=== PATIENT | male | born 1955 | race Two or more races ===

== ENCOUNTER 2017-09-17 11:04 | Inpatient (IN) | payer OTHER ==
[2017-09-17 12:09] VITALS: BMI 24.2
--- NOTE | 2017-09-17 14:31 | HP ---
CIWA Score - CIWA Score Nausea/Vomitin-No Nausea/No Vomiting Muscle Tremors: 4-Moderate,w/Arms Extend Anxiety: 4-Mod. Anxious/Guarded Agitation: 4-Moderately Restless Paroxysmal Sweats: 3 Orientation: 0-Oriented Tacttile Disturbances: 0-None Auditory Disturbances: 0-None Visual Disturbances: 0-None Headache: 1-Very Mild CIWA-Ar Total Score: 16 Admission ROS BHS - HPI Chief Complaint: I am here for detox for my drinking. Allergies/Adverse Reactions: Allergies Allergy/AdvReac Type Severity Reaction Status Date / Time No Known Allergies Allergy Verified 09/17/17 13:44 History of Present Illness: pt is a 62yr old male with a history of alcohol dependence seeking detox for treatment. Exam Limitations: No Limitations, Language Barrier - Ebola screening Have you traveled outside of the country in the last 21 days: No Have you had contact with anyone from an Ebola affected area: No Have you been sick,other than usual withdrawal symptoms: No Do you have a fever: No - Review of Systems Constitutional: Chills, Loss of Appetite, Changes in sleep, Unintentional Wgt. Loss EENT: reports: No Symptoms Reported Respiratory: reports: No Symptoms reported Cardiac: reports: No Symptoms Reported, Syncope GI: reports: Poor Appetite, Poor Fluid Intake, Vomiting : reports: No Symptoms Reported Musculoskeletal: reports: No Symptoms Reported Integumentary: reports: Flushing, Sweating Neuro: reports: Headache, Tingling, Tremors Endocrine: reports: Flushing, Intolerance to Cold, Intolerance to Heat Hematology: reports: No Symptoms Reported Psychiatric: reports: Judgement Intact, Mood/Affect Appropiate, Orientated x3, Agitated, Anxious Other Systems: Reviewed and Negative Patient History - Patient Medical History Hx Anemia: No Hx Asthma: Yes Hx Chronic Obstructive Pulmonary Disease (COPD): No Hx Cancer: No Hx Cardiac Disorders: No Hx Congestive Heart Failure: No Hx Hypertension: No Hx Hypercholesterolemia: No Hx Pacemaker: No HX Cerebrovascular Accident: No Hx Seizures: No Hx Dementia: No Hx Diabetes: No Hx Gastrointestinal Disorders: No Hx Liver Disease: No Hx Genitourinary Disorders: No Hx Sexually Transmitted Disorders: No Hx Renal Disease (ESRD): No Hx Thyroid Disease: No Hx Human Immunodeficiency Virus (HIV): No Hx Hepatitis C: No Hx Depression: Yes Hx Suicide Attempt: No Hx Bipolar Disorder: No Hx Schizophrenia: No - Patient Surgical History Past Surgical History: Yes Hx Neurologic Surgery: No Hx Cataract Extraction: No Hx Cardiac Surgery: No Hx Lung Surgery: No Hx Breast Surgery: No Hx Breast Biopsy: No Hx Abdominal Surgery: Yes (right inguinal hernia repair 20 years ago) Hx Appendectomy: Yes Hx Cholecystectomy: No Hx Genitourinary Surgery: No Hx Section: No Hx Orthopedic Surgery: No Other Surgical History: right inguinal hernia repair Anesthesia Reaction: No - PPD History Previous Implant?: Yes Documented Results: Positive w/o proof Date: 10/04/13 PPD to be Administered?: Yes - Reproductive History Patient is a Female of Child Bearing Age (11 -55 yrs old): No Patient : No - Smoking Cessation Smoking history: Current every day smoker Have you smoked in the past 12 months: Yes Aproximately how many cigarettes per day: 12 Cigars Per Day: 0 Hx Chewing Tobacco Use: No Initiated information on smoking cessation: Yes 'Breaking Loose' booklet given: 09/17/17 - Substance & Tx. History Hx Alcohol Use: Yes Hx Substance Use: No Substance Use Type: Alcohol Hx Substance Use [facility]: [facility] - Substances Abused Alcohol/ Vodka/Beer Route: Oral Frequency: Daily Amount used: 4/5 pints Age of first use: 16 Date of Last Use: 09/16/17 Family Disease History - Family Disease History Family Disease History: Heart Disease: Mother (HTN), Other: Father (alzheimers) Admission Physical Exam BHS - Vital Signs Vital Signs: Vital Signs - 24 hr 09/17/17 12:05 Temperature 96.8 F L Pulse Rate 81 Respiratory 17 Rate Blood Pressure 123/75 - Physical General Appearance: Yes: Appropriately Dressed, Tremorous, Irritable, Sweating, Anxious HEENTM: Yes: Normal Voice, Nasal Congestion, Rhinorrhea Respiratory: Yes: Lungs Clear, Normal Breath Sounds, No Respiratory Distress Neck: Yes: No masses,lesions,Nodules Breast: Yes: Within Normal Limits Cardiology: Yes: Regular Rhythm, Regular Rate, S1, S2 Abdominal: Yes: Normal Bowel Sounds, Non Tender, Soft Genitourinary: Yes: Within Normal Limits Back: Yes: Normal Inspection Musculoskeletal: Yes: full range of Motion, Back pain Extremities: Yes: Normal Capillary Refill, Normal Inspection, Non-Tender, Tremors Neurological: Yes: Fully Oriented, Alert, Normal Response Integumentary: Yes: Normal Color, Diaphoresis Lymphatic: Yes: Within Normal Limits - Diagnostic (1) Alcohol dependence with uncomplicated withdrawal Current Visit: Yes Status: Chronic (2) Asthma Current Visit: Yes Status: Chronic (3) Nicotine dependence Current Visit: Yes Status: Chronic Qualifiers: Nicotine product type: cigarettes Substance use status: uncomplicated Qualified Code(s): F17.210 - Nicotine dependence, cigarettes, uncomplicated Cleared for Admission [facility] - Detox or Rehab [facility] Level of Care: Medically Managed Detox Regimen/Protocol: Librium [facility] Breath Alcohol Content Breath Alcohol Content: 0.029 Urine Drug Screen - Results Drug Screen Negative: No Urine Drug Screen Results: BZO-Benzodiazepines
[2017-09-17] MEDS ORDERED: MAGNESIUM CITRATE 300 ML BOTTLE PO PRN (14:37)
[2017-09-17] MEDS ORDERED: guaiFENesin/D-METHORPHAN HB 10 ML UNIT-DOSE CUPS PO PRN (14:37)
[2017-09-17] MEDS ORDERED: P-EPHED 60MG/TRIPROLIDI 2.5MG TABLET PO PRN (14:37)
[2017-09-17] MEDS ORDERED: LOPERAMIDE HCL 2 MG CAPSULE PO PRN (14:37)
[2017-09-17] MEDS ORDERED: NICOTINE POLACRILEX 4 MG GUM BUC PRN (14:37)
[2017-09-17] MEDS ORDERED: chlordiazePOXIDE HCL 25 MG CAPSULE PO PRN (14:37)
[2017-09-17] MEDS ORDERED: MENTHOL/PHENOL 1 EACH UD MM PRN (14:37)
[2017-09-17] MEDS ORDERED: ACETAMINOPHEN 325 MG TABLET (FP) PO PRN (14:37)
[2017-09-17] MEDS ORDERED: MAG HYDROX/AL HYDROX/SIMETH 30 ML UNIT-DOSE CUP PO PRN (14:37)
[2017-09-17] MEDS ORDERED: MAGNESIUM HYDROX 2400MG/30ML ORAL SUSPENSION 30 ML CUP PO PRN (14:37)
[2017-09-17] MEDS ORDERED: ALBUTEROL SO4 18 GM HFA INHALER IH PRN (14:39)
[2017-09-17] MEDS ORDERED: chlordiazePOXIDE HCL 25 MG CAPSULE PO ONE (15:21)
[2017-09-17 17:12] LABS: URINE APPEARANCE CLEAR; URINE BILIRUBIN NEGATIVE (NEGATIVE); URINE BLOOD NEGATIVE (NEGATIVE); URINE COLOR YELLOW; URINE GLUCOSE (UA) 1+ (NEGATIVE); URINE KETONE NEGATIVE (NEGATIVE); URINE LEUK ESTERASE NEGATIVE (NEGATIVE); URINE NITRITE NEGATIVE (NEGATIVE); URINE PROTEIN NEGATIVE (NEGATIVE); URINE UROBILINOGEN NEGATIVE mg/dL (0.2-1.0)
[2017-09-17] MEDS: chlordiazePOXIDE HCL 25 MG CAPSULE PO SCH ×2 (17:42→22:23)
[2017-09-17] MEDS: IBUPROFEN 400 MG TABLET (FP) PO PRN (19:48)
[2017-09-17 20:41] LABS: URINE LEUK ESTERASE NEGATIVE (NEGATIVE)
[2017-09-17] MEDS: THIAMINE HCL 100 MG TABLET (FP) PO SCH (22:22)
[2017-09-17] MEDS: hydrOXYzine PAMOATE 50 MG CAPSULE (FP) PO PRN (22:24)
[2017-09-18] MEDS: chlordiazePOXIDE HCL 25 MG CAPSULE PO SCH ×4 (06:00→22:21)
[2017-09-18 10:02] LABS: MCH 27.4 pg (25.7-33.7); MCHC 32.4 g/dl (32.0-35.9); MEAN CELL VOLUME 84.5 fl (80-96); PLATELET COUNT 258 K/MM3 (134-434); RDW 16.5 % (11.9-15.9); WHITE BLOOD COUNT 5.9 K/mm3 (4.0-10.0)
[2017-09-18 10:16] LABS: ALBUMIN 3.7 g/dl (3.4-5.0); ANION GAP 5 (8-16); CALCIUM 8.9 mg/dL (8.5-10.1); CO2 30 mmol/L (21-32); CREATININE 1.4 mg/dL (0.7-1.3); GLUCOSE,RANDOM 79 mg/dL (74-106); SGOT/AST 37 U/L (15-37); SGPT/ALT 35 U/L (12-78)
[2017-09-18] MEDS: NICOTINE 21 MG/24 HOURS TOPICAL PATCH TD SCH (10:17)
[2017-09-18] MEDS: PRENATAL VITAMINS W/ FOLIC ACID TABLET (FP) PO SCH (10:17)
[2017-09-18 10:18] LABS: ALK PHOS 49 U/L (45-117); BILIRUBIN,TOTAL 0.8 mg/dL (0.2-1.0)
--- NOTE | 2017-09-18 10:43 | EKG ---
Test Reason : Blood Pressure : / mmHG Vent. Rate : 065 BPM Atrial Rate : 065 BPM P-R Int : 114 ms QRS Dur : 092 ms QT Int : 382 ms P-R-T Axes : 051 021 039 degrees QTc Int : 397 ms NORMAL SINUS RHYTHM NORMAL ECG NO PREVIOUS ECGS AVAILABLE Confirmed by HUANG JACKSON, YARI ([id number]) on 09/18/2017 10:42:58 AM Referred By: Confirmed By:YARI ENCINAS MD
--- NOTE | 2017-09-18 11:31 | CONSULT ---
[facility] Psychiatric Consult - Data Date of interview: 09/18/17 Admission source: [facility] Identifying data: Readmission to [facility] for this 62 y/o male seeking detox treatment on for alcohol dependence.Patient is , a father of two,domiciled and employed as a snaker tractor driver (delivery). Substance Abuse History: Discussed in this session.Confirmed by patient.See details in current [facility] report : Smoking history: Current every day smoker. Have you smoked in the past 12 months: Yes. Aproximately how many cigarettes per day: 12. Cigars Per Day: 0. Hx Chewing Tobacco Use: No. Initiated information on smoking cessation: Yes. 'Breaking Loose' booklet given: . - Substance & Tx. History. Hx Alcohol Use: Yes. Hx Substance Use: No. Substance Use Type: Alcohol. Hx Substance Use Treatment: Yes (last detox [facility] detox 5 months ago). - Substances Abused. Alcohol/ Vodka/Beer. Route: Oral. Frequency: Daily. Amount used: 4/5 pints. Age of first use: 16. Date of Last Use: 09/16/17 Medical History: Bronchial asthma and a history of right inguinal herniorraphy + appendectomy. Psychiatric History: Diagnosed with MDD and prescribed lexapro 10 mg/ day.Patient admits to a history of 4-5 psychiatric hospitalizations ([facility]).No current connection with psychiatric OPD care.Mr Park reports one suicide attempt, three years ago,via deliberately jumping into traffic. Physical/Sexual Abuse/Trauma History: No reported history of abuse. Additional Comment: Urine Drug Screen Results: BZO-Benzodiazepines.Noted. Mental Status Exam - Mental Status Exam Alert and Oriented to: Time, Place, Person Cognitive Function: Good Patient Appearance: Well Groomed Mood: Hopeful, Euthymic Affect: Appropriate, Normal Range Patient Behavior: Appropriate, Cooperative Speech Pattern: Clear Voice Loudness: Normal Thought Process: Intact, Goal Oriented Thought Disorder: Not Present Hallucinations: Denies Suicidal Ideation: Denies Homicidal Ideation: Denies Insight/Judgement: Fair Sleep: Well Appetite: Good Muscle strength/Tone: Normal Gait/Station: Normal Psychiatric Findings - Problem List (Fay 1, 2,3) (1) Alcohol dependence with uncomplicated withdrawal Current Visit: Yes Status: Acute (2) Nicotine dependence Current Visit: Yes Status: Acute Qualifiers: Nicotine product type: cigarettes Substance use status: in withdrawal Qualified Code(s): F17.213 - Nicotine dependence, cigarettes, with withdrawal (3) Substance induced mood disorder Current Visit: Yes Status: Acute (4) Depressive disorder Current Visit: Yes Status: Chronic Comment: As per self-report.On antidepressant medication. - Initial Treatment Plan Initial Treatment Plan: Psychoeducation.Detoxification.Medication : lexapro 10 mg po daily.Side effects/benefits are discussed with the patient.He agrees to this careplan.Observation.
--- NOTE | 2017-09-18 11:33 | PN ---
[facility] CIWA - CIWA Score Nausea/Vomitin-No Nausea/No Vomiting Muscle Tremors: 4-Moderate,w/Arms Extend Anxiety: 4-Mod. Anxious/Guarded Agitation: 3 Paroxysmal Sweats: No Perspiration Orientation: 0-Oriented Tacttile Disturbances: 3-Moderate Itch/Numb/Burn Auditory Disturbances: 0-None Visual Disturbances: 0-None Headache: 0-None Present CIWA-Ar Total Score: 14 S Progress Note (SOAP) Subjective: SLIGHT ANXIETY,TREMORS,FATIGUE. Objective: 09/18/17 11:32 Vital Signs Temperature 96.5 F L 09/18/17 09:52 Pulse Rate 75 09/18/17 09:52 Respiratory Rate 18 09/18/17 09:52 Blood Pressure 105/74 09/18/17 09:52 O2 Sat by Pulse Oximetry (%) Laboratory Last Values WBC 5.9 K/mm3 (4.0-10.0) 09/18/17 05:45 RBC 5.27 M/mm3 (4.00-5.60) 09/18/17 05:45 Hgb 14.4 GM/dL (11.7-16.9) 09/18/17 05:45 Hct 44.6 % (35.4-49) 09/18/17 05:45 MCV 84.5 fl (80-96) 09/18/17 05:45 MCH 27.4 pg (25.7-33.7) 09/18/17 05:45 MCHC 32.4 g/dl (32.0-35.9) 09/18/17 05:45 RDW 16.5 % (11.9-15.9) H 09/18/17 05:45 Plt Count 258 K/MM3 (134-434) 09/18/17 05:45 MPV 8.0 fl (7.5-11.1) 09/18/17 05:45 Sodium 137 mmol/L (136-145) 09/18/17 05:45 Potassium 4.7 mmol/L (3.5-5.1) 09/18/17 05:45 Chloride 102 mmol/L (98-107) 09/18/17 05:45 Carbon Dioxide 30 mmol/L (21-32) 09/18/17 05:45 Anion Gap 5 (8-16) L 09/18/17 05:45 BUN 14 mg/dL (7-18) 09/18/17 05:45 Creatinine 1.4 mg/dL (0.7-1.3) H D 09/18/17 05:45 Creat Clearance w eGFR 51.69 (>60) 09/18/17 05:45 Random Glucose 79 mg/dL (74-106) 09/18/17 05:45 Calcium 8.9 mg/dL (8.5-10.1) 09/18/17 05:45 Total Bilirubin 0.8 mg/dL (0.2-1.0) D 09/18/17 05:45 AST 37 U/L (15-37) 09/18/17 05:45 ALT 35 U/L (12-78) D 09/18/17 05:45 Alkaline Phosphatase 49 U/L (45-117) 09/18/17 05:45 Total Protein 7.0 g/dl (6.4-8.2) 09/18/17 05:45 Albumin 3.7 g/dl (3.4-5.0) 09/18/17 05:45 Urine Color Yellow 09/17/17 15:40 Urine Appearance Clear 09/17/17 15:40 Urine pH 7.0 (5.0-8.0) 09/17/17 15:40 Ur Specific [place] 1.018 (1.001-1.035) 09/17/17 15:40 Urine Protein Negative (NEGATIVE) 09/17/17 15:40 Urine Glucose (UA) 1+ (NEGATIVE) H 09/17/17 15:40 Urine Ketones Negative (NEGATIVE) 09/17/17 15:40 Urine Blood Negative (NEGATIVE) 09/17/17 15:40 Urine Nitrite Negative (NEGATIVE) 09/17/17 15:40 Urine Bilirubin Negative (NEGATIVE) 09/17/17 15:40 Urine Urobilinogen Negative mg/dL (0.2-1.0) 09/17/17 15:40 Ur Leukocyte Esterase Negative (NEGATIVE) 09/17/17 15:40 Assessment: 09/18/17 11:32 WITHDRAWAL SX Plan: CONTINUE DETOX INCREASE PO FLUIDS.
[2017-09-18] MEDS ORDERED: FLU VACCINE QUAD 60 MCG/0.5 ML (MDV 17-18) IM ONE (12:00)
[2017-09-18 15:10] LABS: HIV 1 & 2 AB NEGATIVE; HIV 1 AGp24 NEGATIVE
[2017-09-18] MEDS: IBUPROFEN 400 MG TABLET (FP) PO PRN (16:56)
[2017-09-18] MEDS: THIAMINE HCL 100 MG TABLET (FP) PO SCH (22:21)
[2017-09-18] MEDS: hydrOXYzine PAMOATE 50 MG CAPSULE (FP) PO PRN (22:23)
[2017-09-19] MEDS: chlordiazePOXIDE HCL 25 MG CAPSULE PO SCH (05:22)
[2017-09-19] MEDS: PRENATAL VITAMINS W/ FOLIC ACID TABLET (FP) PO SCH (09:17)
[2017-09-19] MEDS: NICOTINE 21 MG/24 HOURS TOPICAL PATCH TD SCH (09:17)
[2017-09-19 09:36] VITALS: BP 95/67; PULSE 81; TEMP 97.9
[2017-09-19] MEDS ORDERED: ESCITALOPRAM OXALATE 10 MG TABLET (FP) PO SCH (10:00)
--- NOTE | 2017-09-19 10:37 | DS ---
[facility] Detox Discharge Summary Admission Date: 09/17/17 Discharge Date: 09/19/17 - History Present History: Alcohol Dependence Additional Comments: PT DECLINED TO CONTINUE WITH DETOX FOR PERSONAL REASON OF "GOING BACK TO WORK IMMEDIATELY". ALERT O X 3. EXPLAINED TO PT THE NEED FOR TREATMENT ADHERENCE. PT STATES WILL FOLLOW UP WITH [facility] AT [facility] FOR MEDICAL MANAGEMENT NEEDED. Pertinent Past History: ASTHMA - Physical Exam Results Vital Signs: Vital Signs Temperature 97.9 F 09/19/17 09:35 Pulse Rate 81 09/19/17 09:35 Respiratory Rate 20 09/19/17 09:35 Blood Pressure 95/67 09/19/17 09:35 O2 Sat by Pulse Oximetry (%) Pertinent Admission Physical Exam Findings: WITHDAKarlosWAL SX Laboratory Last Values WBC 5.9 K/mm3 (4.0-10.0) 09/18/17 05:45 RBC 5.27 M/mm3 (4.00-5.60) 09/18/17 05:45 Hgb 14.4 GM/dL (11.7-16.9) 09/18/17 05:45 Hct 44.6 % (35.4-49) 09/18/17 05:45 MCV 84.5 fl (80-96) 09/18/17 05:45 MCH 27.4 pg (25.7-33.7) 09/18/17 05:45 MCHC 32.4 g/dl (32.0-35.9) 09/18/17 05:45 RDW 16.5 % (11.9-15.9) H 09/18/17 05:45 Plt Count 258 K/MM3 (134-434) 09/18/17 05:45 MPV 8.0 fl (7.5-11.1) 09/18/17 05:45 Sodium 137 mmol/L (136-145) 09/18/17 05:45 Potassium 4.7 mmol/L (3.5-5.1) 09/18/17 05:45 Chloride 102 mmol/L (98-107) 09/18/17 05:45 Carbon Dioxide 30 mmol/L (21-32) 09/18/17 05:45 Anion Gap 5 (8-16) L 09/18/17 05:45 BUN 14 mg/dL (7-18) 09/18/17 05:45 Creatinine 1.4 mg/dL (0.7-1.3) H D 09/18/17 05:45 Creat Clearance w eGFR 51.69 (>60) 09/18/17 05:45 Random Glucose 79 mg/dL (74-106) 09/18/17 05:45 Calcium 8.9 mg/dL (8.5-10.1) 09/18/17 05:45 Total Bilirubin 0.8 mg/dL (0.2-1.0) D 09/18/17 05:45 AST 37 U/L (15-37) 09/18/17 05:45 ALT 35 U/L (12-78) D 09/18/17 05:45 Alkaline Phosphatase 49 U/L (45-117) 09/18/17 05:45 Total Protein 7.0 g/dl (6.4-8.2) 09/18/17 05:45 Albumin 3.7 g/dl (3.4-5.0) 09/18/17 05:45 Urine Color Yellow 09/17/17 15:40 Urine Appearance Clear 09/17/17 15:40 Urine pH 7.0 (5.0-8.0) 09/17/17 15:40 Ur Specific [place] 1.018 (1.001-1.035) 09/17/17 15:40 Urine Protein Negative (NEGATIVE) 09/17/17 15:40 Urine Glucose (UA) 1+ (NEGATIVE) H 09/17/17 15:40 Urine Ketones Negative (NEGATIVE) 09/17/17 15:40 Urine Blood Negative (NEGATIVE) 09/17/17 15:40 Urine Nitrite Negative (NEGATIVE) 09/17/17 15:40 Urine Bilirubin Negative (NEGATIVE) 09/17/17 15:40 Urine Urobilinogen Negative mg/dL (0.2-1.0) 09/17/17 15:40 Ur Leukocyte Esterase Negative (NEGATIVE) 09/17/17 15:40 RPR Titer Nonreactive (NONREACTIVE) 09/18/17 05:45 HIV 1&2 Antibody Screen Negative 09/17/17 06:00 HIV P24 Antigen Negative 09/17/17 06:00 - Treatment Hospital Course: Discharged Condition Good - Medication Discharge Medications: Ambulatory Orders Albuterol Sulfate Inhaler - [Ventolin HFA Inhaler -] 2 inh PO Q4H PRN #0 inh Albuterol Sulfate Inhaler - [Ventolin Hfa Inhaler -] 2 inh PO Q4H PRN 08/27/17 Escitalopram Oxalate [Lexapro -] 10 mg PO DAILY 08/27/17 Escitalopram Oxalate [Lexapro -] 10 mg PO DAILY #30 tablet 08/28/17 Escitalopram Oxalate [Lexapro -] 10 mg PO DAILY 09/17/17 Escitalopram Oxalate [Lexapro -] 10 mg PO DAILY #30 tablet 09/18/17 - Diagnosis (1) Alcohol dependence with uncomplicated withdrawal Status: Acute (2) Asthma Status: Chronic (3) Nicotine dependence Status: Acute Qualifiers: Nicotine product type: cigarettes Substance use status: in withdrawal Qualified Code(s): F17.213 - Nicotine dependence, cigarettes, with withdrawal - AMA Did Patient Leave Against Medical Advice: Yes
[2017-09-19] MEDS ORDERED: chlordiazePOXIDE 5 MG CAPSULE PO SCH (17:00)
[2017-09-20] MEDS ORDERED: chlordiazePOXIDE HCL 10 MG CAPSULE PO SCH (17:00)
== END 2017-09-19 10:18 | disposition left against medical advice (07) | DRG 770 ==
LOC: YASAS 11:04 → Y3N 14:42
PROVIDERS: ADMIT Internal Medicine; ATTEND Internal Medicine
PROC: HZ2ZZZZ Detoxification Services for Substance Abuse Treatment (ICD-10-PCS; principal; 2017-09-17)
DX: F10.230 Alcohol dependence with withdrawal, uncomplicated (principal); F17.213 Nicotine dependence, cigarettes, with withdrawal; F19.24 Other psychoactive substance dependence with psychoactive substance-induced mood disorder; F39 Unspecified mood [affective] disorder; J45.909 Unspecified asthma, uncomplicated
CPT/HCPCS: 36415; 71020-TC; 80053; 81003; 85027; 86593; 87389; 93005; 93010

== ENCOUNTER 2017-10-14 15:44 | Inpatient (IN) | payer OTHER ==
[2017-10-14 17:40] VITALS: BMI 24.2
--- NOTE | 2017-10-14 21:58 | HP ---
CIWA Score - CIWA Score Nausea/Vomitin Muscle Tremors: 2 Anxiety: 2 Agitation: 1-Slight > Activity Paroxysmal Sweats: 2 Orientation: 1-Uncertain about Date Tacttile Disturbances: 0-None Auditory Disturbances: 1-Very Mild Visual Disturbances: 1-Very Mild Sensitivity Headache: 2-Mild CIWA-Ar Total Score: 14 Admission ROS S - HPI Chief Complaint: WITHDRAWAL SYMPTOMS Allergies/Adverse Reactions: Allergies Allergy/AdvReac Type Severity Reaction Status Date / Time No Known Allergies Allergy Verified 09/17/17 13:44 History of Present Illness: 62 Y.O. MAN WITH A HISTORY OF ALCOHOL DEPENDENCE IS SEEKING DETOX. HE HAS HAD MULTIPLE ADMISSION FOR DETOX AND HAS LEFT AMA EACH TIME. Exam Limitations: Intoxication - Ebola screening Have you traveled outside of the country in the last 21 days: No (N) Have you had contact with anyone from an Ebola affected area: No Have you been sick,other than usual withdrawal symptoms: No Do you have a fever: No - Review of Systems Constitutional: Diaphoresis, Changes in sleep EENT: reports: Blurred Vision, Double Vision Respiratory: reports: Shortness of Breath Cardiac: reports: No Symptoms Reported GI: reports: Nausea : reports: No Symptoms Reported Musculoskeletal: reports: No Symptoms Reported Integumentary: reports: No Symptoms Reported Neuro: reports: Headache, Tremors Endocrine: reports: No Symptoms Reported Hematology: reports: No Symptoms Reported Psychiatric: reports: Anxious, Depressed Other Systems: Reviewed and Negative Patient History - Patient Medical History Hx Anemia: No Hx Asthma: Yes (MDI) Hx Chronic Obstructive Pulmonary Disease (COPD): No Hx Cancer: No Hx Cardiac Disorders: No Hx Congestive Heart Failure: No Hx Hypertension: No Hx Hypercholesterolemia: No Hx Pacemaker: No HX Cerebrovascular Accident: No Hx Seizures: No Hx Dementia: No Hx Diabetes: No Hx Gastrointestinal Disorders: No Hx Liver Disease: No Hx Genitourinary Disorders: No Hx Sexually Transmitted Disorders: No (DENIES) Hx Renal Disease (ESRD): No Hx Thyroid Disease: No Hx Human Immunodeficiency Virus (HIV): No (NEGATIVE HX) Hx Hepatitis C: No Hx Depression: Yes (ON LEXAPRO 10 MG) Hx Suicide Attempt: No (DENIES) Hx Bipolar Disorder: No Hx Schizophrenia: No - Patient Surgical History Past Surgical History: Yes Hx Neurologic Surgery: No Hx Cataract Extraction: No Hx Cardiac Surgery: No Hx Lung Surgery: No Hx Breast Surgery: No Hx Breast Biopsy: No Hx Abdominal Surgery: No Hx Appendectomy: No Hx Cholecystectomy: No Hx Genitourinary Surgery: No Hx Section: No Hx Orthopedic Surgery: No Other Surgical History: right inguinal hernia repair Anesthesia Reaction: No - PPD History Previous Implant?: No Date: 10/04/13 Results: CXR 09/2017:NEG PPD to be Administered?: No - Reproductive History Patient is a Female of Child Bearing Age (11 -55 yrs old): No - Smoking Cessation Smoking history: Current every day smoker Have you smoked in the past 12 months: Yes Aproximately how many cigarettes per day: 20 Cigars Per Day: 0 Hx Chewing Tobacco Use: No Initiated information on smoking cessation: Yes 'Breaking Loose' booklet given: 10/14/17 - Substance & Tx. History Hx Alcohol Use: Yes Hx Substance Use: No Substance Use Type: Alcohol Hx Substance Use Treatment: Yes (DETOX: 09/2017) - Substances Abused Alcohol Route: Oral Frequency: Daily Amount used: 2-3 PINTS AND 10 16OZ CANS OF BEER Age of first use: 16 Date of Last Use: 10/14/17 Family Disease History - Family Disease History Family Disease History: Heart Disease: Mother (HTN), Other: Father (alzheimers) Admission Physical Exam S - Vital Signs Vital Signs: Vital Signs - 24 hr 10/14/17 17:37 Temperature 98.2 F Pulse Rate 98 H Respiratory 18 Rate Blood Pressure 108/65 - Physical General Appearance: Yes: Disheveled, Intoxicated, Anxious HEENTM: Yes: Hearing grossly Normal, Normal ENT Inspection, Normocephalic Respiratory: Yes: Chest Non-Tender, Lungs Clear, Normal Breath Sounds, No Respiratory Distress, No Accessory Muscle Use Neck: Yes: No masses,lesions,Nodules, Trachea in good position Breast: Yes: Breast Exam Deferred Cardiology: Yes: Regular Rhythm, Regular Rate Abdominal: Yes: Normal Bowel Sounds, Non Tender, Flat, Soft Genitourinary: Yes: Other (NO COMPLAINTS REPORTED) Back: Yes: Normal Inspection Musculoskeletal: Yes: Gait Steady, Pelvis Stable Extremities: Yes: Normal Capillary Refill, Normal Inspection, Normal Range of Motion, Non-Tender Neurological: Yes: Alert, Normal Mood/Affect, Normal Response Integumentary: Yes: Normal Color, Dry, Warm Lymphatic: Yes: Within Normal Limits - Diagnostic (1) Alcohol dependence with uncomplicated withdrawal Current Visit: Yes Status: Chronic (2) Nicotine dependence Current Visit: Yes Status: Chronic Qualifiers: Nicotine product type: cigarettes Substance use status: in withdrawal Qualified Code(s): F17.213 - Nicotine dependence, cigarettes, with withdrawal (3) Asthma Current Visit: Yes Status: Chronic Cleared for Admission [facility] - Detox or Rehab [facility] Level of Care: Medically Managed Detox Regimen/Protocol: Librium [facility] Breath Alcohol Content Breath Alcohol Content: 0.270 Urine Drug Screen - Results Drug Screen Negative: Yes
[2017-10-14] MEDS ORDERED: MAGNESIUM CITRATE 300 ML BOTTLE PO PRN (22:09)
[2017-10-14] MEDS ORDERED: chlordiazePOXIDE HCL 25 MG CAPSULE PO ONE (22:09)
[2017-10-14] MEDS ORDERED: hydrOXYzine PAMOATE 50 MG CAPSULE (FP) PO PRN (22:09)
[2017-10-14] MEDS ORDERED: ACETAMINOPHEN 325 MG TABLET (FP) PO PRN (22:09)
[2017-10-14] MEDS ORDERED: P-EPHED 60MG/TRIPROLIDI 2.5MG TABLET PO PRN (22:09)
[2017-10-14] MEDS ORDERED: LOPERAMIDE HCL 2 MG CAPSULE PO PRN (22:09)
[2017-10-14] MEDS ORDERED: MENTHOL/PHENOL 1 EACH UD MM PRN (22:09)
[2017-10-14] MEDS ORDERED: MAGNESIUM HYDROX 2400MG/30ML ORAL SUSPENSION 30 ML CUP PO PRN (22:09)
[2017-10-14] MEDS ORDERED: chlordiazePOXIDE HCL 25 MG CAPSULE PO PRN (22:09)
[2017-10-14] MEDS ORDERED: guaiFENesin/D-METHORPHAN HB 10 ML UNIT-DOSE CUPS PO PRN (22:09)
[2017-10-14] MEDS ORDERED: MAG HYDROX/AL HYDROX/SIMETH 30 ML UNIT-DOSE CUP PO PRN (22:09)
[2017-10-14] MEDS: IBUPROFEN 400 MG TABLET (FP) PO PRN (22:55)
[2017-10-14] MEDS: chlordiazePOXIDE HCL 25 MG CAPSULE PO SCH (23:06)
[2017-10-15 03:10] LABS: URINE APPEARANCE CLEAR; URINE BILIRUBIN NEGATIVE (NEGATIVE); URINE BLOOD NEGATIVE (NEGATIVE); URINE COLOR LTYELLOW; URINE GLUCOSE (UA) NEGATIVE (NEGATIVE); URINE KETONE NEGATIVE (NEGATIVE); URINE LEUK ESTERASE NEGATIVE (NEGATIVE); URINE NITRITE NEGATIVE (NEGATIVE); URINE PROTEIN NEGATIVE (NEGATIVE); URINE UROBILINOGEN NEGATIVE mg/dL (0.2-1.0)
[2017-10-15] MEDS: ALBUTEROL SO4 18 GM HFA INHALER IH PRN (04:46)
[2017-10-15] MEDS: IBUPROFEN 400 MG TABLET (FP) PO PRN ×2 (04:46→10:54)
[2017-10-15] MEDS: chlordiazePOXIDE HCL 25 MG CAPSULE PO SCH ×4 (05:45→22:42)
--- NOTE | 2017-10-15 09:50 | PN ---
[facility] CIWA - CIWA Score Nausea/Vomitin Muscle Tremors: 3 Anxiety: 3 Agitation: 3 Paroxysmal Sweats: 1-Minimal Palms Moist Orientation: 0-Oriented Tacttile Disturbances: 1-Very Mild Itch/Numbness Auditory Disturbances: 1-Very Mild Visual Disturbances: 0-None Headache: 2-Mild CIWA-Ar Total Score: 17 [facility] Progress Note (SOAP) Subjective: ALERT,IRRITABLE,ANXIOUS,INTERRUPTED SLEEP,TREMOR Objective: 10/15/17 09:49 Vital Signs Temperature 97.0 F L 10/15/17 06:00 Pulse Rate 93 H 10/15/17 06:00 Respiratory Rate 18 10/15/17 06:00 Blood Pressure 141/77 10/15/17 06:00 O2 Sat by Pulse Oximetry (%) 10/15/17 09:49 EKG NSR,NORMAL ECG Assessment: 10/15/17 09:49 WITHDRAWAL SYMPTOM Plan: CONTINUE DETOX
[2017-10-15 10:19] LABS: ALBUMIN 3.4 g/dl (3.4-5.0); ANION GAP 9 (8-16); BLOOD UREA NITROGEN 16 mg/dL (7-18); CALCIUM 8.9 mg/dL (8.5-10.1); CHLORIDE 103 mmol/L (98-107); CO2 29 mmol/L (21-32); CREATININE 1.1 mg/dL (0.7-1.3); GLUCOSE,RANDOM 74 mg/dL (74-106); POTASSIUM 4.1 mmol/L (3.5-5.1); SGOT/AST 32 U/L (15-37); SODIUM 141 mmol/L (136-145)
[2017-10-15 10:22] LABS: ALK PHOS 46 U/L (45-117); BILIRUBIN,TOTAL 0.3 mg/dL (0.2-1.0); SGPT/ALT 35 U/L (12-78); TOT PROT 6.4 g/dl (6.4-8.2)
[2017-10-15] MEDS: PRENATAL VITAMINS W/ FOLIC ACID TABLET (FP) PO SCH (10:26)
[2017-10-15] MEDS: NICOTINE 21 MG/24 HOURS TOPICAL PATCH TD SCH (10:27)
[2017-10-15 10:28] LABS: HEMATOCRIT 41.2 % (35.4-49); HEMOGLOBIN 13.3 GM/dL (11.7-16.9); MCH 27.1 pg (25.7-33.7); MCHC 32.3 g/dl (32.0-35.9); MEAN CELL VOLUME 83.9 fl (80-96); PLATELET COUNT 339 K/MM3 (134-434); RBC 4.91 M/mm3 (4.00-5.60); RDW 15.4 % (11.9-15.9); WHITE BLOOD COUNT 6.4 K/mm3 (4.0-10.0)
[2017-10-15] MEDS: ESCITALOPRAM OXALATE 10 MG TABLET (FP) PO SCH (10:51)
--- NOTE | 2017-10-15 11:28 | CONSULT ---
[facility] Psychiatric Consult - Data Date of interview: 10/15/17 Admission source: [facility] Identifying data: Pt. is a 62 year old male, , father of 2, unemployed , and currently living with his mother. This is one of multiple admissions to [facility]. Pt. admitted to for alcohol dependence. Substance Abuse History: Alcohol- First used: 16 Frequency: daily Amount: 1 liter of vodka per day and several beers. Last used: 10/14/2016. Cigarette: Current every day smoker. 20 cigarettes Medical History: Asthma, right inguinal hernia repair. Psychiatric History: Pt. reports multiple psychiatric hospitalizations. Last psychiatric hospitalization was at [facility] for sucidial ideation in September 2017. Pt. also reports psychiatric hospitalization at [facility], [facility] and [facility] in 2017. States all admissions were due to suicidal ideation. Pt. reports one suicde attempt three years ago in which he jumped in front of a car. Reports h/o OPC but has not seen his psychiatrist since July of 2017. Physical/Sexual Abuse/Trauma History: Denies. Mental Status Exam - Mental Status Exam Alert and Oriented to: Time, Place, Person Cognitive Function: Good Mood: Euthymic Affect: Mood Congruent Patient Behavior: Appropriate, Cooperative Speech Pattern: Appropriate Voice Loudness: Normal Thought Process: Goal Oriented Thought Disorder: Not Present Hallucinations: Denies Suicidal Ideation: Denies Homicidal Ideation: Denies Insight/Judgement: Poor Sleep: Poorly Appetite: Fair Muscle strength/Tone: Normal Gait/Station: Normal Psychiatric Findings - Problem List ([place] 1, 2,3) (1) Alcohol dependence with uncomplicated withdrawal Current Visit: Yes Status: Acute (2) Alcohol dependence Current Visit: Yes Status: Active (3) MDD (major depressive disorder), recurrent episode Current Visit: Yes Status: Acute (4) Nicotine dependence Current Visit: Yes Status: Acute Qualifiers: Nicotine product type: cigarettes Substance use status: uncomplicated Qualified Code(s): F17.210 - Nicotine dependence, cigarettes, uncomplicated (5) Substance induced mood disorder Current Visit: Yes Status: Acute - Initial Treatment Plan Initial Treatment Plan: Psychoeducation provided. Detoxification in progress. Lexapro 10mg po daily +trazodone 50mg qhs ordered. Pharmacy claims reviewed. Verbal consent given. Benefits and side effects. discussed. Will continue to monitor.
--- NOTE | 2017-10-15 14:44 | EKG ---
Test Reason : Blood Pressure : / mmHG Vent. Rate : 079 BPM Atrial Rate : 079 BPM P-R Int : 146 ms QRS Dur : 088 ms QT Int : 372 ms P-R-T Axes : -09 043 005 degrees QTc Int : 426 ms NORMAL SINUS RHYTHM NORMAL ECG WHEN COMPARED WITH ECG OF 14-OCT-2017 22:57, NONSPECIFIC T WAVE ABNORMALITY, WORSE IN INFERIOR LEADS Confirmed by Jesus Lopez MD ([id number]) on 10/15/2017 2:44:32 PM Referred By: Confirmed By:Jesus Lopez MD
--- NOTE | 2017-10-15 15:19 | EKG ---
Test Reason : Blood Pressure : / mmHG Vent. Rate : 078 BPM Atrial Rate : 078 BPM P-R Int : 152 ms QRS Dur : 078 ms QT Int : 362 ms P-R-T Axes : 066 015 042 degrees QTc Int : 412 ms NORMAL SINUS RHYTHM WITH SINUS ARRHYTHMIA POSSIBLE LEFT ATRIAL ENLARGEMENT NONSPECIFIC ST ABNORMALITY ABNORMAL ECG WHEN COMPARED WITH ECG OF 17-SEP-2017 16:47, NO SIGNIFICANT CHANGE WAS FOUND Confirmed by Jesus Lopez MD ([id number]) on 10/15/2017 3:18:39 PM Referred By: Confirmed By:Jesus Lopez MD
[2017-10-15] MEDS: traZODone HCL 50 MG TABLET (FP) PO SCH (22:42)
[2017-10-15] MEDS: THIAMINE HCL 100 MG TABLET (FP) PO SCH (22:42)
[2017-10-16] MEDS: chlordiazePOXIDE HCL 25 MG CAPSULE PO SCH ×3 (05:20→18:34)
[2017-10-16] MEDS: ALBUTEROL SO4 18 GM HFA INHALER IH PRN (09:38)
--- NOTE | 2017-10-16 10:15 | PN ---
S CIWA - CIWA Score Nausea/Vomitin Muscle Tremors: 3 Anxiety: 3 Agitation: 2 Paroxysmal Sweats: 1-Minimal Palms Moist Orientation: 0-Oriented Tacttile Disturbances: 1-Very Mild Itch/Numbness Auditory Disturbances: 1-Very Mild Visual Disturbances: 0-None Headache: 2-Mild CIWA-Ar Total Score: 16 BHS Progress Note (SOAP) Subjective: ALERT,IRRITABLE,ANXIOUS,INTERRUPTED SLEEP,TREMOR,PAIN IN THE BODY AND BACK Objective: 10/16/17 10:14 Vital Signs Temperature 97.7 F 10/16/17 06:19 Pulse Rate 82 10/16/17 06:19 Respiratory Rate 18 10/16/17 06:19 Blood Pressure 119/64 10/16/17 06:19 O2 Sat by Pulse Oximetry (%) 10/16/17 10:14 Laboratory Last Values WBC 6.4 K/mm3 (4.0-10.0) 10/15/17 08:00 RBC 4.91 M/mm3 (4.00-5.60) 10/15/17 08:00 Hgb 13.3 GM/dL (11.7-16.9) 10/15/17 08:00 Hct 41.2 % (35.4-49) 10/15/17 08:00 MCV 83.9 fl (80-96) 10/15/17 08:00 MCH 27.1 pg (25.7-33.7) 10/15/17 08:00 MCHC 32.3 g/dl (32.0-35.9) 10/15/17 08:00 RDW 15.4 % (11.9-15.9) 10/15/17 08:00 Plt Count 339 K/MM3 (134-434) D 10/15/17 08:00 MPV 8.0 fl (7.5-11.1) 10/15/17 08:00 Sodium 141 mmol/L (136-145) 10/15/17 08:00 Potassium 4.1 mmol/L (3.5-5.1) 10/15/17 08:00 Chloride 103 mmol/L (98-107) 10/15/17 08:00 Carbon Dioxide 29 mmol/L (21-32) 10/15/17 08:00 Anion Gap 9 (8-16) 10/15/17 08:00 BUN 16 mg/dL (7-18) 10/15/17 08:00 Creatinine 1.1 mg/dL (0.7-1.3) D 10/15/17 08:00 Creat Clearance w eGFR > 60 (>60) 10/15/17 08:00 Random Glucose 74 mg/dL (74-106) 10/15/17 08:00 Calcium 8.9 mg/dL (8.5-10.1) 10/15/17 08:00 Total Bilirubin 0.3 mg/dL (0.2-1.0) D 10/15/17 08:00 AST 32 U/L (15-37) 10/15/17 08:00 ALT 35 U/L (12-78) 10/15/17 08:00 Alkaline Phosphatase 46 U/L (45-117) 10/15/17 08:00 Total Protein 6.4 g/dl (6.4-8.2) 10/15/17 08:00 Albumin 3.4 g/dl (3.4-5.0) 10/15/17 08:00 Urine Color Ltyellow 10/14/17 06:30 Urine Appearance Clear 10/14/17 06:30 Urine pH 6.0 (5.0-8.0) 10/14/17 06:30 Ur Specific [place] 1.005 (1.001-1.035) 10/14/17 06:30 Urine Protein Negative (NEGATIVE) 10/14/17 06:30 Urine Glucose (UA) Negative (NEGATIVE) 10/14/17 06:30 Urine Ketones Negative (NEGATIVE) 10/14/17 06:30 Urine Blood Negative (NEGATIVE) 10/14/17 06:30 Urine Nitrite Negative (NEGATIVE) 10/14/17 06:30 Urine Bilirubin Negative (NEGATIVE) 10/14/17 06:30 Urine Urobilinogen Negative mg/dL (0.2-1.0) 10/14/17 06:30 Ur Leukocyte Esterase Negative (NEGATIVE) 10/14/17 06:30 RPR Titer Nonreactive (NONREACTIVE) 10/15/17 08:00 Assessment: 10/16/17 10:14 WITHDRAWAL SYMPTOM Plan: CONTINUE DETOX
[2017-10-16] MEDS: NICOTINE 21 MG/24 HOURS TOPICAL PATCH TD SCH (10:34)
[2017-10-16] MEDS: PRENATAL VITAMINS W/ FOLIC ACID TABLET (FP) PO SCH (10:34)
[2017-10-16] MEDS: ESCITALOPRAM OXALATE 10 MG TABLET (FP) PO SCH (10:34)
[2017-10-16] MEDS: THIAMINE HCL 100 MG TABLET (FP) PO SCH (22:31)
[2017-10-16] MEDS: traZODone HCL 50 MG TABLET (FP) PO SCH (22:31)
[2017-10-16] MEDS: chlordiazePOXIDE 5 MG CAPSULE PO SCH (22:31)
[2017-10-17] MEDS: chlordiazePOXIDE 5 MG CAPSULE PO SCH ×2 (06:39→11:03)
[2017-10-17 10:08] VITALS: BP 121/69; PULSE 96; TEMP 97.7
--- NOTE | 2017-10-17 10:51 | DS ---
[facility] Detox Discharge Summary Admission Date: 10/14/17 Discharge Date: 10/17/17 - History Present History: Alcohol Dependence Additional Comments: PATIENT IS STABLE FOR DISCHARGE,SEEN BY COUNSELOR,FOLLOW UP WITH AFTER CARE PROGRAM ARRANGEMENT Pertinent Past History: ASTHMA NICOTINE DEPENDENCE - Physical Exam Results Vital Signs: Vital Signs Temperature 97.7 F 10/17/17 10:08 Pulse Rate 96 H 10/17/17 10:08 Respiratory Rate 18 10/17/17 10:08 Blood Pressure 121/69 10/17/17 10:08 O2 Sat by Pulse Oximetry (%) Pertinent Admission Physical Exam Findings: WITHDRAWAL SYMPTOM AND FINDING - Treatment Hospital Course: Detox Protocol Followed, Detoxed Safely, Responded well, Discharged Condition Good, Rehab Referral Accepted Patient has Accepted a Rehab Referral to: [facility] - Medication Discharge Medications: Ambulatory Orders Albuterol Sulfate Inhaler - [Ventolin HFA Inhaler -] 2 inh PO Q4H PRN #0 inh Albuterol Sulfate Inhaler - [Ventolin Hfa Inhaler -] 2 inh PO Q4H PRN 08/27/17 Escitalopram Oxalate [Lexapro -] 10 mg PO DAILY #30 tablet 09/18/17 - Diagnosis (1) Alcohol dependence with uncomplicated withdrawal Current Visit: Yes Status: Acute (2) Asthma Current Visit: Yes Status: Chronic (3) Nicotine dependence Current Visit: Yes Status: Chronic Qualifiers: Nicotine product type: cigarettes Substance use status: in withdrawal Qualified Code(s): F17.213 - Nicotine dependence, cigarettes, with withdrawal (4) Syncope Current Visit: No Status: Acute - AMA Did Patient Leave Against Medical Advice: No
[2017-10-17] MEDS: PRENATAL VITAMINS W/ FOLIC ACID TABLET (FP) PO SCH (11:02)
[2017-10-17] MEDS: ESCITALOPRAM OXALATE 10 MG TABLET (FP) PO SCH (11:03)
[2017-10-17] MEDS ORDERED: chlordiazePOXIDE HCL 10 MG CAPSULE PO SCH (23:00)
== END 2017-10-17 11:13 | disposition home or self-care (01) | DRG 775 ==
LOC: YASAS 15:44 → Y6N 20:58
PROVIDERS: ADMIT Internal Medicine; ATTEND Internal Medicine
PROC: HZ2ZZZZ Detoxification Services for Substance Abuse Treatment (ICD-10-PCS; principal; 2017-10-14)
DX: F10.230 Alcohol dependence with withdrawal, uncomplicated (principal); F17.213 Nicotine dependence, cigarettes, with withdrawal; F32.9 Major depressive disorder, single episode, unspecified; F19.24 Other psychoactive substance dependence with psychoactive substance-induced mood disorder; J45.909 Unspecified asthma, uncomplicated
CPT/HCPCS: 36415; 80053; 81003; 85027; 86593; 93005; 93010

== ENCOUNTER 2018-09-08 11:43 | Inpatient (IN) | payer OTHER ==
[2018-09-08 12:38] VITALS: BMI 23.6
--- NOTE | 2018-09-08 16:33 | HP ---
CIWA Score Nausea/Vomitin Muscle Tremors: 3 Anxiety: 2 Agitation: 3 Paroxysmal Sweats: 1-Minimal Palms Moist Orientation: 0-Oriented Tacttile Disturbances: 0-None Auditory Disturbances: 0-None Visual Disturbances: 0-None Headache: 0-None Present CIWA-Ar Total Score: 12 - Admission Criteria OASAS Guidelines: Admission for Medically Managed Detox: Requires at least one of the followin. CIWA greater than 12 2. Seizures within the past 24 hours 3. Delirium tremens within the past 24 hours 4. Hallucinations within the past 24 hours 5. Acute intervention needed for co occurring medical disorder 6. Acute intervention needed for co occurring psychiatric disorder 7. Severe withdrawal that cannot be handled at a lower level of care (continued vomiting, continued diarrhea, abnormal vital signs) requiring intravenous medication and/or fluids 8. Patient presents the following: CIWA greater than 12 Admission Criteria Met: Admission criteria met Admission ROS [facility] Chief Complaint: Here for detox from alcohol and also using cocaine. Allergies/Adverse Reactions: Allergies Allergy/AdvReac Type Severity Reaction Status Date / Time No Known Allergies Allergy Verified 09/08/18 15:38 History of Present Illness: 63 yo with h/o asthma and depression, here for alcohol detox: says he is drinking about vodka 4-5 pints/day and 5-6 beers. Also uses cocaine occ- about once a week $20. Says last use of alcohol last night. No seizures, no DT's Was here in 10/2017, says he stopped drinking for about 7 months and then restarted alcohol. Meds: pump DUR: shows no recent controlled substances Utox: cocaine, LAMONT-0.133 - Ebola screening Have you traveled outside of the country in the last 21 days: No Have you had contact with anyone from an Ebola affected area: No Have you been sick,other than usual withdrawal symptoms: No Patient History - Patient Medical History Hx Anemia: No Hx Asthma: Yes Hx Chronic Obstructive Pulmonary Disease (COPD): No Hx Cancer: No Hx Cardiac Disorders: No Hx Congestive Heart Failure: No Hx Hypertension: No Hx Hypercholesterolemia: No Hx Pacemaker: No HX Cerebrovascular Accident: No Hx Seizures: No Hx Dementia: No Hx Diabetes: No Hx Gastrointestinal Disorders: No Hx Liver Disease: No Hx Genitourinary Disorders: No Hx Sexually Transmitted Disorders: No Hx Renal Disease (ESRD): No Hx Thyroid Disease: No Hx Human Immunodeficiency Virus (HIV): No (NEGATIVE HX) Hx Hepatitis C: No Hx Depression: Yes Hx Suicide Attempt: No Hx Bipolar Disorder: No Hx Schizophrenia: No - Patient Surgical History Past Surgical History: Yes Hx Neurologic Surgery: No Hx Cataract Extraction: No Hx Cardiac Surgery: No Hx Lung Surgery: No Hx Breast Surgery: No Hx Breast Biopsy: No Hx Abdominal Surgery: No Hx Appendectomy: No Hx Cholecystectomy: No Hx Genitourinary Surgery: No Hx Section: No Hx Orthopedic Surgery: No Other Surgical History: right inguinal hernia repair Anesthesia Reaction: No - PPD History Previous Implant?: Yes Documented Results: Positive w/o proof Implanted On Prior R Admission?: Yes Date: 10/04/13 Results: CXR 09/2017:NEG - Smoking Cessation Smoking history: Current every day smoker Have you smoked in the past 12 months: Yes Aproximately how many cigarettes per day: 20 Cigars Per Day: 0 Hx Chewing Tobacco Use: No Initiated information on smoking cessation: Yes 'Breaking Loose' booklet given: 09/09/18 - Substances Abused Cocaine Route: Inhalation Frequency: 1-2 times per week Amount used: $20 Age of first use: 42 Date of Last Use: 09/07/18 Alcohol-vodka/beer Route: Oral Frequency: Daily Amount used: 4-5 pts./1-6 pk. Age of first use: 16 Date of Last Use: 09/07/18 Family Disease History - Family Disease History Family Disease History: Heart Disease: Mother (HTN), Other: Father (alzheimers) Admission Physical Exam S - Vital Signs Vital Signs: Vital Signs - 24 hr 09/08/18 12:37 Temperature 96 F L Pulse Rate 73 Respiratory 20 Rate Blood Pressure 115/71 - Physical General Appearance: Yes: Within Normal Limits HEENTM: Yes: Within Normal Limits, EOMI, Normal Voice, BERTA, Pharynx Normal Respiratory: Yes: Within Normal Limits, Lungs Clear Neck: Yes: Within Normal Limits, No masses,lesions,Nodules Cardiology: Yes: Within Normal Limits, Regular Rate Abdominal: Yes: Within Normal Limits, Normal Bowel Sounds Genitourinary: Yes: Within Normal Limits Musculoskeletal: Yes: Within Normal Limits Extremities: Yes: Within Normal Limits Neurological: Yes: Within Normal Limits, liner reroll tender II-XII NML intact, Fully Oriented, Alert, Motor Strength 5/5 Integumentary: Yes: Within Normal Limits Lymphatic: Yes: Within Normal Limits - Diagnostic (1) Alcohol dependence with uncomplicated withdrawal Current Visit: Yes Status: Acute (2) Cocaine dependence Current Visit: Yes Status: Chronic (3) MDD (major depressive disorder), recurrent episode Current Visit: No Status: Acute (4) Nicotine dependence Current Visit: No Status: Acute Qualifiers: Nicotine product type: cigarettes Substance use status: uncomplicated Qualified Code(s): F17.210 - Nicotine dependence, cigarettes, uncomplicated (5) Asthma Current Visit: No Status: Chronic Cleared for Admission S - Detox or Rehab [facility] Level of Care: Medically Managed Detox Regimen/Protocol: Librium [facility] Breath Alcohol Content Breath Alcohol Content: 0.133 Urine Drug Screen - Results Drug Screen Negative: No Urine Drug Screen Results: BRYCE-Cocaine
[2018-09-08] MEDS ORDERED: ACETAMINOPHEN 325 MG TABLET (FP) PO PRN (16:41)
[2018-09-08] MEDS ORDERED: P-EPHED 60MG/TRIPROLIDI 2.5MG TABLET PO PRN (16:41)
[2018-09-08] MEDS ORDERED: MENTHOL/PHENOL 1 EACH UD MM PRN (16:41)
[2018-09-08] MEDS ORDERED: MAGNESIUM HYDROX 2400MG/30ML ORAL SUSPENSION 30 ML CUP PO PRN (16:41)
[2018-09-08] MEDS ORDERED: guaiFENesin/D-METHORPHAN HB 10 ML UNIT-DOSE CUPS PO PRN (16:41)
[2018-09-08] MEDS ORDERED: MAG HYDROX/AL HYDROX/SIMETH 30 ML UNIT-DOSE CUP PO PRN (16:41)
[2018-09-08] MEDS ORDERED: LOPERAMIDE HCL 2 MG CAPSULE PO PRN (16:41)
[2018-09-08] MEDS ORDERED: MAGNESIUM CITRATE 300 ML BOTTLE PO PRN (16:41)
[2018-09-08] MEDS ORDERED: IBUPROFEN 400 MG TABLET (FP) PO PRN (16:41)
[2018-09-08] MEDS ORDERED: chlordiazePOXIDE HCL 25 MG CAPSULE PO PRN (16:44)
[2018-09-08] MEDS: chlordiazePOXIDE HCL 25 MG CAPSULE PO SCH ×2 (18:20→22:34)
[2018-09-08] MEDS ORDERED: MELATONIN 5 MG TABLETS PO PRN (22:00)
[2018-09-08] MEDS: THIAMINE HCL 100 MG TABLET (FP) PO SCH (22:34)
[2018-09-09] MEDS: chlordiazePOXIDE HCL 25 MG CAPSULE PO SCH ×4 (05:40→22:19)
[2018-09-09] MEDS ORDERED: ALBUTEROL SO4 8 GM HFA INHALER IH ONE (08:38)
[2018-09-09] MEDS ORDERED: ALBUTEROL SO4 8 GM HFA INHALER IH PRN (09:50)
[2018-09-09 10:00] LABS: HEMATOCRIT 40.8 % (35.4-49); MCH 26.5 pg (25.7-33.7); MCHC 31.9 g/dl (32.0-35.9); MEAN CELL VOLUME 82.9 fl (80-96); MEAN PLT VOLUME 7.9 fl (7.5-11.1); PLATELET COUNT 262 K/MM3 (134-434); RBC 4.93 M/mm3 (4.00-5.60); WHITE BLOOD COUNT 7.1 K/mm3 (4.0-10.0)
[2018-09-09] MEDS: PRENATAL VITAMINS W/ FOLIC ACID TABLET (FP) PO SCH (10:09)
[2018-09-09] MEDS: NICOTINE 14 MG/24 HOURS TOPICAL PATCH TD SCH (10:09)
[2018-09-09 10:16] LABS: ALBUMIN 3.5 g/dl (3.4-5.0); ALK PHOS 48 U/L (45-117); ANION GAP 9 MMOL/L (8-16); BILIRUBIN,TOTAL 0.3 mg/dL (0.2-1); BLOOD UREA NITROGEN 14 mg/dL (7-18); CALCIUM 8.8 mg/dL (8.5-10.1); CHLORIDE 104 mmol/L (98-107); CO2 27 mmol/L (21-32); CREATININE 1.1 mg/dL (0.55-1.3); GLUCOSE,RANDOM 102 mg/dL (74-106); SGOT/AST 15 U/L (15-37); SGPT/ALT 26 U/L (13-61); SODIUM 140 mmol/L (136-145); TOT PROT 6.4 g/dl (6.4-8.2)
[2018-09-09] MEDS: AMMONIUM LACTATE 12% LOTION 225 GM BOTTLE TP SCH ×2 (10:44→22:46)
--- NOTE | 2018-09-09 13:49 | PN ---
S CIWA - CIWA Score Nausea/Vomitin-Mild Nausea/No Vomiting Muscle Tremors: 4-Moderate,w/Arms Extend Anxiety: 4-Mod. Anxious/Guarded Agitation: 4-Moderately Restless Paroxysmal Sweats: 3 Orientation: 0-Oriented Tacttile Disturbances: 0-None Auditory Disturbances: 0-None Visual Disturbances: 0-None Headache: 0-None Present CIWA-Ar Total Score: 16 BHS Progress Note (SOAP) Subjective: Stuffy nose, tremor, chills Objective: 09/09/18 13:38 Last Vital Signs Temp Pulse Resp BP Pulse Ox 96.7 F L 94 H 18 97/63 09/09/18 09:30 09/09/18 09:30 09/09/18 09:30 09/09/18 09:30 Laboratory Tests 09/09/18 09/09/18 09/09/18 07:00 07:00 07:00 WBC 7.1 RBC 4.93 Hgb 13.0 Hct 40.8 MCV 82.9 MCH 26.5 MCHC 31.9 L RDW 15.0 Plt Count 262 D MPV 7.9 Sodium 140 Potassium 4.0 Chloride 104 Carbon Dioxide 27 Anion Gap 9 BUN 14 Creatinine 1.1 Creat Clearance w eGFR > 60 Random Glucose 102 Calcium 8.8 Total Bilirubin 0.3 AST 15 ALT 26 Alkaline Phosphatase 48 Total Protein 6.4 Albumin 3.5 RPR Titer HIV 1&2 Antibody Screen Negative HIV P24 Antigen Negative 09/09/18 07:00 WBC RBC Hgb Hct MCV MCH MCHC RDW Plt Count MPV Sodium Potassium Chloride Carbon Dioxide Anion Gap BUN Creatinine Creat Clearance w eGFR Random Glucose Calcium Total Bilirubin AST ALT Alkaline Phosphatase Total Protein Albumin RPR Titer Nonreactive HIV 1&2 Antibody Screen HIV P24 Antigen Labs reviewed Assessment: 09/09/18 13:39 Withdrawal symptoms Plan: Continue detox Encouraged PO water intake
[2018-09-09] MEDS: THIAMINE HCL 100 MG TABLET (FP) PO SCH (22:19)
[2018-09-10] MEDS: chlordiazePOXIDE HCL 25 MG CAPSULE PO SCH ×2 (05:33→10:06)
[2018-09-10] MEDS: AMMONIUM LACTATE 12% LOTION 225 GM BOTTLE TP SCH (10:06)
[2018-09-10] MEDS: PRENATAL VITAMINS W/ FOLIC ACID TABLET (FP) PO SCH (10:06)
[2018-09-10] MEDS: NICOTINE 14 MG/24 HOURS TOPICAL PATCH TD SCH (10:06)
--- NOTE | 2018-09-10 10:36 | PN ---
[facility] CIWA - CIWA Score Nausea/Vomitin-Mild Nausea/No Vomiting Muscle Tremors: 3 Anxiety: 3 Agitation: 3 Paroxysmal Sweats: 1-Minimal Palms Moist Orientation: 0-Oriented Tacttile Disturbances: 0-None Auditory Disturbances: 0-None Visual Disturbances: 0-None Headache: 1-Very Mild CIWA-Ar Total Score: 12 S Progress Note (SOAP) Subjective: tremor sweat gi distress trouble sleep at night Objective: 09/10/18 10:36 Vital Signs Temperature 96.7 F L 09/10/18 09:13 Pulse Rate 103 H 09/10/18 09:13 Respiratory Rate 20 09/10/18 09:13 Blood Pressure 105/68 09/10/18 09:13 O2 Sat by Pulse Oximetry (%) Laboratory Last Values WBC 7.1 K/mm3 (4.0-10.0) 09/09/18 07:00 RBC 4.93 M/mm3 (4.00-5.60) 09/09/18 07:00 Hgb 13.0 GM/dL (11.7-16.9) 09/09/18 07:00 Hct 40.8 % (35.4-49) 09/09/18 07:00 MCV 82.9 fl (80-96) 09/09/18 07:00 MCH 26.5 pg (25.7-33.7) 09/09/18 07:00 MCHC 31.9 g/dl (32.0-35.9) L 09/09/18 07:00 RDW 15.0 % (11.9-15.9) 09/09/18 07:00 Plt Count 262 K/MM3 (134-434) D 09/09/18 07:00 MPV 7.9 fl (7.5-11.1) 09/09/18 07:00 Sodium 140 mmol/L (136-145) 09/09/18 07:00 Potassium 4.0 mmol/L (3.5-5.1) 09/09/18 07:00 Chloride 104 mmol/L (98-107) 09/09/18 07:00 Carbon Dioxide 27 mmol/L (21-32) 09/09/18 07:00 Anion Gap 9 MMOL/L (8-16) 09/09/18 07:00 BUN 14 mg/dL (7-18) 09/09/18 07:00 Creatinine 1.1 mg/dL (0.55-1.3) 09/09/18 07:00 Creat Clearance w eGFR > 60 (>60) 09/09/18 07:00 Random Glucose 102 mg/dL (74-106) 09/09/18 07:00 Calcium 8.8 mg/dL (8.5-10.1) 09/09/18 07:00 Total Bilirubin 0.3 mg/dL (0.2-1) 09/09/18 07:00 AST 15 U/L (15-37) 09/09/18 07:00 ALT 26 U/L (13-61) 09/09/18 07:00 Alkaline Phosphatase 48 U/L (45-117) 09/09/18 07:00 Total Protein 6.4 g/dl (6.4-8.2) 09/09/18 07:00 Albumin 3.5 g/dl (3.4-5.0) 09/09/18 07:00 RPR Titer Nonreactive (NONREACTIVE) 09/09/18 07:00 HIV 1&2 Antibody Screen Negative 09/09/18 07:00 HIV P24 Antigen Negative 09/09/18 07:00 lab noted Assessment: 09/10/18 10:36 withdrawal sx Plan: continue detox
[2018-09-10 13:12] VITALS: BP 116/70; PULSE 79; TEMP 98.4
--- NOTE | 2018-09-10 15:09 | DS ---
[facility] Detox Discharge Summary Admission Date: 09/08/18 Discharge Date: 09/10/18 - History Present History: Alcohol Dependence Additional Comments: 63 years old male admitted on 09/08/18 for alcohol withdrawal sx insists to leave the unit that "not comfortable with the roommate" patient is alert oriented x 3 no acute distress denies suicidal denies homocidal no self destructive behavior Pertinent Past History: roommate - Physical Exam Results Vital Signs: Vital Signs Temperature 98.4 F 09/10/18 13:11 Pulse Rate 79 09/10/18 13:11 Respiratory Rate 18 09/10/18 13:11 Blood Pressure 116/70 09/10/18 13:11 O2 Sat by Pulse Oximetry (%) Pertinent Admission Physical Exam Findings: alcohol withdrawal sx Vital Signs Temperature 98.4 F 09/10/18 13:11 Pulse Rate 79 09/10/18 13:11 Respiratory Rate 18 09/10/18 13:11 Blood Pressure 116/70 09/10/18 13:11 O2 Sat by Pulse Oximetry (%) Laboratory Last Values WBC 7.1 K/mm3 (4.0-10.0) 09/09/18 07:00 RBC 4.93 M/mm3 (4.00-5.60) 09/09/18 07:00 Hgb 13.0 GM/dL (11.7-16.9) 09/09/18 07:00 Hct 40.8 % (35.4-49) 09/09/18 07:00 MCV 82.9 fl (80-96) 09/09/18 07:00 MCH 26.5 pg (25.7-33.7) 09/09/18 07:00 MCHC 31.9 g/dl (32.0-35.9) L 09/09/18 07:00 RDW 15.0 % (11.9-15.9) 09/09/18 07:00 Plt Count 262 K/MM3 (134-434) D 09/09/18 07:00 MPV 7.9 fl (7.5-11.1) 09/09/18 07:00 Sodium 140 mmol/L (136-145) 09/09/18 07:00 Potassium 4.0 mmol/L (3.5-5.1) 09/09/18 07:00 Chloride 104 mmol/L (98-107) 09/09/18 07:00 Carbon Dioxide 27 mmol/L (21-32) 09/09/18 07:00 Anion Gap 9 MMOL/L (8-16) 09/09/18 07:00 BUN 14 mg/dL (7-18) 09/09/18 07:00 Creatinine 1.1 mg/dL (0.55-1.3) 09/09/18 07:00 Creat Clearance w eGFR > 60 (>60) 09/09/18 07:00 Random Glucose 102 mg/dL (74-106) 09/09/18 07:00 Calcium 8.8 mg/dL (8.5-10.1) 09/09/18 07:00 Total Bilirubin 0.3 mg/dL (0.2-1) 09/09/18 07:00 AST 15 U/L (15-37) 09/09/18 07:00 ALT 26 U/L (13-61) 09/09/18 07:00 Alkaline Phosphatase 48 U/L (45-117) 09/09/18 07:00 Total Protein 6.4 g/dl (6.4-8.2) 09/09/18 07:00 Albumin 3.5 g/dl (3.4-5.0) 09/09/18 07:00 RPR Titer Nonreactive (NONREACTIVE) 09/09/18 07:00 HIV 1&2 Antibody Screen Negative 09/09/18 07:00 HIV P24 Antigen Negative 09/09/18 07:00 lab noted - Treatment Hospital Course: Detox Protocol Followed, Responded well Patient has Accepted a Rehab Referral to: [facility] services - Medication Discharge Medications: Ambulatory Orders Albuterol Sulfate Inhaler - [Ventolin HFA Inhaler -] 2 inh PO Q4H PRN #1 inhaler 10/17/17 - Diagnosis (1) Alcohol dependence with uncomplicated withdrawal Status: Acute (2) Nicotine dependence Status: Acute Qualifiers: Nicotine product type: cigarettes Substance use status: in withdrawal Qualified Code(s): F17.213 - Nicotine dependence, cigarettes, with withdrawal (3) Substance induced mood disorder Status: Suspected (4) Asthma Status: Chronic (5) Nicotine dependence Status: Acute Qualifiers: Nicotine product type: cigarettes Substance use status: in withdrawal Qualified Code(s): F17.213 - Nicotine dependence, cigarettes, with withdrawal (6) PPD positive Status: Resolved - AMA Did Patient Leave Against Medical Advice: Yes
[2018-09-10] MEDS ORDERED: chlordiazePOXIDE 5 MG CAPSULE PO SCH (17:00)
[2018-09-11] MEDS ORDERED: chlordiazePOXIDE HCL 10 MG CAPSULE PO SCH (17:00)
== END 2018-09-10 14:10 | disposition left against medical advice (07) | DRG 770 ==
LOC: YASAS 11:43 → Y3N 17:34
PROC: HZ2ZZZZ Detoxification Services for Substance Abuse Treatment (ICD-10-PCS; principal; 2018-09-08)
DX: F10.230 Alcohol dependence with withdrawal, uncomplicated (principal); F17.213 Nicotine dependence, cigarettes, with withdrawal; F19.24 Other psychoactive substance dependence with psychoactive substance-induced mood disorder; F32.9 Major depressive disorder, single episode, unspecified; J45.909 Unspecified asthma, uncomplicated; R76.11 Nonspecific reaction to tuberculin skin test without active tuberculosis
CPT/HCPCS: 36415; 71046-TC-FY; 80053; 85027; 86593; 87389

== ENCOUNTER 2018-10-02 17:59 | Inpatient (IN) | payer OTHER ==
[2018-10-02 18:05] VITALS: BMI 22.6
--- NOTE | 2018-10-02 20:38 | HP ---
CIWA Score - Admission Criteria OASAS Guidelines: Admission for Medically Managed Detox: Requires at least one of the followin. CIWA greater than 12 2. Seizures within the past 24 hours 3. Delirium tremens within the past 24 hours 4. Hallucinations within the past 24 hours 5. Acute intervention needed for co occurring medical disorder 6. Acute intervention needed for co occurring psychiatric disorder 7. Severe withdrawal that cannot be handled at a lower level of care (continued vomiting, continued diarrhea, abnormal vital signs) requiring intravenous medication and/or fluids 8. Admission ROS [facility] - HPI Chief Complaint: Seeking admission to Rehab. Allergies/Adverse Reactions: Allergies Allergy/AdvReac Type Severity Reaction Status Date / Time No Known Allergies Allergy Verified 10/02/18 19:22 History of Present Illness: 63 years old male with a long history of alcohol dependence is seeking admission to Rehab. Patient has medical history of asthma, hypertension, alcohol related seizure, PPD positive and depression. He denies suicidal ideation at this time. Exam Limitations: No Limitations - Ebola screening Have you traveled outside of the country in the last 21 days: No Have you had contact with anyone from an Ebola affected area: No Have you been sick,other than usual withdrawal symptoms: No Do you have a fever: No - Review of Systems Constitutional: No Symptoms Reported EENT: reports: No Symptoms Reported Respiratory: reports: No Symptoms reported Cardiac: reports: No Symptoms Reported GI: reports: No Symptoms Reported : reports: No Symptoms Reported Musculoskeletal: reports: No Symptoms Reported Integumentary: reports: No Symptoms Reported Neuro: reports: No Symptoms reported Endocrine: reports: No Symptoms Reported Hematology: reports: No Symptoms Reported Psychiatric: reports: No Sypmtoms Reported, Mood/Affect Appropiate, Orientated x3 Other Systems: Reviewed and Negative Patient History - Patient Medical History Hx Anemia: No Hx Asthma: Yes (Albuterol) Hx Chronic Obstructive Pulmonary Disease (COPD): No Hx Cancer: No Hx Cardiac Disorders: No Hx Congestive Heart Failure: No Hx Hypertension: Yes (Not on medication) Hx Hypercholesterolemia: No Hx Pacemaker: No HX Cerebrovascular Accident: No Hx Seizures: Yes (Alcohol related - Not on medication) Hx Dementia: No Hx Diabetes: No Hx Gastrointestinal Disorders: No Hx Liver Disease: No Hx Genitourinary Disorders: No Hx Sexually Transmitted Disorders: No Hx Renal Disease (ESRD): No Hx Thyroid Disease: No Hx Human Immunodeficiency Virus (HIV): No (NEGATIVE 2017) Hx Hepatitis C: No Hx Depression: Yes (Lexapro) Hx Suicide Attempt: No (Denies suicidal ideation at this time) Hx Bipolar Disorder: No Hx Schizophrenia: No Other Medical History: PPD POSITIVE - Patient Surgical History Past Surgical History: Yes Hx Neurologic Surgery: No Hx Cataract Extraction: No Hx Cardiac Surgery: No Hx Lung Surgery: No Hx Breast Surgery: No Hx Breast Biopsy: No Hx Abdominal Surgery: No Hx Appendectomy: No Hx Cholecystectomy: No Hx Genitourinary Surgery: No Hx Section: No Hx Orthopedic Surgery: No Other Surgical History: right inguinal hernia repair Anesthesia Reaction: No - PPD History Documented Results: Positive w/o proof Date: 10/04/13 Results: CXR 09/2017:NEG PPD to be Administered?: No - Reproductive History Patient is a Female of Child Bearing Age (11 -55 yrs old): No (MALE) - Smoking Cessation Smoking history: Current every day smoker Have you smoked in the past 12 months: Yes Aproximately how many cigarettes per day: 20 Cigars Per Day: 0 Hx Chewing Tobacco Use: No Initiated information on smoking cessation: Yes 'Breaking Loose' booklet given: 10/02/18 - Substance & Tx. History Hx Alcohol Use: Yes Hx Substance Use: Yes Substance Use Type: Alcohol, Cocaine Hx Substance Use Treatment: Yes ([facility]) - Substances Abused Alcohol Route: Oral Frequency: Daily Amount used: BEER - 5 , VODKA - 3 PINTS Age of first use: 16 Date of Last Use: 09/30/18 Cocaine Route: Smoking Frequency: Daily Amount used: $20 Age of first use: 42 Date of Last Use: 09/30/18 Family Disease History - Family Disease History Family Disease History: Heart Disease: Mother (HTN), Other: Father (alzheimers) Admission Physical Exam BHS - Vital Signs Vital Signs: Vital Signs - 24 hr 10/02/18 18:02 Temperature 97.9 F Pulse Rate 84 Respiratory 18 Rate Blood Pressure 140/100 - Physical General Appearance: Yes: No Apparent Distress HEENTM: Yes: EOMI, Normal ENT Inspection, Normal Voice, BERTA Respiratory: Yes: Lungs Clear, Normal Breath Sounds, No Respiratory Distress Neck: Yes: Supple Breast: Yes: Breast Exam Deferred Cardiology: Yes: Regular Rhythm, Regular Rate Abdominal: Yes: Normal Bowel Sounds Genitourinary: Yes: Within Normal Limits Back: Yes: Normal Inspection Musculoskeletal: Yes: Within Normal Limits Extremities: Yes: Normal Inspection Neurological: Yes: aerobics instructor II-XII NML intact, Alert, Normal Mood/Affect Integumentary: Yes: Warm Lymphatic: Yes: Within Normal Limits - Diagnostic (1) Alcohol dependence Current Visit: Yes Status: Acute (2) Alcohol related seizure Current Visit: Yes Status: Chronic (3) Nicotine dependence Current Visit: Yes Status: Chronic Qualifiers: Nicotine product type: cigarettes Substance use status: uncomplicated Qualified Code(s): F17.210 - Nicotine dependence, cigarettes, uncomplicated (4) Asthma Current Visit: Yes Status: Chronic (5) Cocaine dependence Current Visit: Yes Status: Chronic Qualifiers: Substance use status: uncomplicated Qualified Code(s): F14.20 - Cocaine dependence, uncomplicated (6) Essential hypertension Current Visit: Yes Status: Chronic (7) 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 Cleared for Admission [facility] - Detox or Rehab [facility] Level of Care: Observation Bed Claeared for Rehab Admission: Yes [facility] Breath Alcohol Content Breath Alcohol Content: 0.072 Urine Drug Screen - Results Drug Screen Negative: No Urine Drug Screen Results: BRYCE-Cocaine, BZO-Benzodiazepines Inpatient Rehab Admission - Initial Determination Are CD services needed?: Yes Free of communicable disease: Yes Not in need of hospitalization: Yes - Rehab Admission Criteria Previous failed treatment: Yes Poor recovery environment: Yes Comorbidities: Yes Lacks judgement: No Patient is meeting Inpatient Rehab admission criteria:: Yes
[2018-10-02] MEDS ORDERED: ACETAMINOPHEN 325 MG TABLET (FP) PO PRN (20:45)
[2018-10-02] MEDS ORDERED: MAGNESIUM CITRATE 300 ML BOTTLE PO PRN (20:45)
[2018-10-02] MEDS ORDERED: IBUPROFEN 400 MG TABLET (FP) PO PRN (20:45)
[2018-10-02] MEDS ORDERED: MAGNESIUM HYDROX 2400MG/30ML ORAL SUSPENSION 30 ML CUP PO PRN (20:45)
[2018-10-02] MEDS ORDERED: MAG HYDROX/AL HYDROX/SIMETH 30 ML UNIT-DOSE CUP PO PRN (20:45)
[2018-10-02] MEDS ORDERED: guaiFENesin/D-METHORPHAN HB 10 ML UNIT-DOSE CUPS PO PRN (20:45)
[2018-10-02] MEDS ORDERED: NICOTINE POLACRILEX 2 MG GUM BUC PRN (20:45)
[2018-10-02] MEDS ORDERED: LOPERAMIDE HCL 2 MG CAPSULE PO PRN (20:45)
[2018-10-02] MEDS ORDERED: MENTHOL/PHENOL 1 EACH UD MM PRN (20:45)
[2018-10-02] MEDS ORDERED: ALBUTEROL SO4 8 GM HFA INHALER IH PRN (20:47)
[2018-10-02] MEDS: MELATONIN 5 MG TABLETS PO PRN (21:54)
[2018-10-02] MEDS: THIAMINE HCL 100 MG TABLET (FP) PO SCH (21:54)
[2018-10-02 22:48] LABS: URINE APPEARANCE CLEAR; URINE BILIRUBIN NEGATIVE (<2.0 mg/dL); URINE COLOR YELLOW; URINE GLUCOSE (UA) NEGATIVE (NEGATIVE); URINE KETONE NEGATIVE (NEGATIVE); URINE LEUK ESTERASE TRACE (NEGATIVE); URINE NITRITE NEGATIVE (NEGATIVE); URINE PROTEIN NEGATIVE (NEGATIVE); URINE UROBILINOGEN NEGATIVE mg/dL (0.2-1.0)
[2018-10-02 23:06] LABS: EPI CELLS RARE /HPF (FEW); URINE MUCUS RARE
--- NOTE | 2018-10-03 06:37 | HP ---
Psychiatrist Admission - Data Date of interview: 10/03/18 Admission source: [facility] Identifying data: This is the first [facility] admission for this 63 years old male, father of 2 children, unemployed on SSI, domiciled living with his mother Medical History: Significant for bronchial asthma, alcohol withdrawal seizure, PPD+ and a history of right inguinal herniorraphy + appendectomy. Psychiatric History: Patient reports that his first psychiatric contact was in 2004 when he was admitted to [facility] for depression and suicidal attempt by jumping in front of a car. Reports a subsequent admission to [facility] for depression and suicidal ideations. Told designer/writer that he received outpatient psychiatric services at [facility] and he was prescribed Lexapro. Claims he stopped attending as well as taking medication long time ago. He last took medication when he saw ARYA Alcaraz on 10/15/17 while in detox and he was prescribed lexapro 10 mg po daily and Trazadone 50 mg po HS. At present, reports feeling mildly depressed and sleeping poorly Physical/Sexual Abuse/Trauma History: Denies histo Additional Comment: Denies criminal history Vital Signs: Vital Signs - 24 hr 10/02/18 10/03/18 10/03/18 18:02 00:30 03:30 Temperature 97.9 F Pulse Rate 84 Respiratory 18 18 18 Rate Blood Pressure 140/100 Allergies/Adverse Reactions: Allergies Allergy/AdvReac Type Severity Reaction Status Date / Time No Known Allergies Allergy Verified 10/02/18 19:22 Date of last physical exam: 10/02/18 Concur with the findings of this exam: Yes - Substance Abuse/Tx History Hx Alcohol Use: Yes Hx Substance Use: Yes Substance Use Type: Alcohol (Started drinking alcohol at age 16, consumes 3 pints of vodka & 5 cans of beer daily. Last drank on 09/30/18), Cocaine ( Started smoking crack cocaine at age 42, consumes $20 worth daily. Last smoked on 09/30/18) Hx Substance Use Treatment: Yes (7 previous inpt detox admissions @ [facility]) Mental Status Exam - Mental Status Exam Alert and Oriented to: Time, Place, Person Cognitive Function: Fair Patient Appearance: Disheveled Mood: Depressed (mildly) Affect: Appropriate Patient Behavior: Cooperative Speech Pattern: Clear Voice Loudness: Normal Thought Process: Intact, Goal Oriented Thought Disorder: Not Present Hallucinations: Denies Suicidal Ideation: Denies Homicidal Ideation: Denies Insight/Judgement: Fair Sleep: Poorly Appetite: Good Muscle strength/Tone: Normal Gait/Station: Normal Psychiatric Findings - Problem List ([place] 1, 2,3) (1) Alcohol dependence Current Visit: Yes Status: Acute (2) Cocaine dependence Current Visit: Yes Status: Acute Qualifiers: Substance use status: uncomplicated Qualified Code(s): F14.20 - Cocaine dependence, uncomplicated (3) Nicotine dependence Current Visit: Yes Status: Chronic Qualifiers: Nicotine product type: cigarettes Substance use status: uncomplicated Qualified Code(s): F17.210 - Nicotine dependence, cigarettes, uncomplicated (4) MDD (major depressive disorder), recurrent episode Current Visit: No Status: Chronic (5) Substance induced mood disorder Current Visit: No Status: Acute (6) Substance-induced sleep disorder Current Visit: Yes Status: Acute (7) Alcohol related seizure Current Visit: Yes Status: Chronic (8) Asthma Current Visit: Yes Status: Chronic (9) Essential hypertension Current Visit: Yes Status: Chronic (10) 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 - Initial Treatment Plan Initial Treatment Plan: 1) Resume Lexapro 10 mg po daily and Trazadone 50 mg po HS. 2) Monitor progress
[2018-10-03] MEDS: PRENATAL VITAMINS W/ FOLIC ACID TABLET (FP) PO SCH (10:10)
[2018-10-03] MEDS: P-EPHED 60MG/TRIPROLIDI 2.5MG TABLET PO PRN ×2 (10:11→21:37)
[2018-10-03] MEDS: NICOTINE 21 MG/24 HOURS TOPICAL PATCH TD SCH (10:11)
[2018-10-03 10:43] LABS: HEMATOCRIT 40.5 % (35.4-49); MCH 26.7 pg (25.7-33.7); MEAN CELL VOLUME 83.3 fl (80-96); MEAN PLT VOLUME 7.4 fl (7.5-11.1); PLATELET COUNT 285 K/MM3 (134-434); RBC 4.86 M/mm3 (4.00-5.60); RDW 15.1 % (11.9-15.9); WHITE BLOOD COUNT 6.9 K/mm3 (4.0-10.0)
[2018-10-03 10:48] LABS: ALBUMIN 3.3 g/dl (3.4-5.0); ALK PHOS 46 U/L (45-117); ANION GAP 6 MMOL/L (8-16); BILIRUBIN,TOTAL 0.3 mg/dL (0.2-1); BLOOD UREA NITROGEN 16 mg/dL (7-18); CALCIUM 8.6 mg/dL (8.5-10.1); CHLORIDE 104 mmol/L (98-107); CO2 29 mmol/L (21-32); GLUCOSE,RANDOM 65 mg/dL (74-106); POTASSIUM 4.4 mmol/L (3.5-5.1); SGOT/AST 21 U/L (15-37); SGPT/ALT 25 U/L (13-61); SODIUM 139 mmol/L (136-145); TOT PROT 6.2 g/dl (6.4-8.2)
[2018-10-03] MEDS: ESCITALOPRAM OXALATE 10 MG TABLET (FP) PO SCH (13:16)
[2018-10-03] MEDS: MELATONIN 5 MG TABLETS PO PRN (21:37)
[2018-10-03] MEDS: THIAMINE HCL 100 MG TABLET (FP) PO SCH (21:37)
[2018-10-03] MEDS ORDERED: traZODone HCL 50 MG TABLET (FP) PO SCH (22:00)
[2018-10-04 06:39] VITALS: BP 120/78; PULSE 76; TEMP 98
[2018-10-04] MEDS: NICOTINE 21 MG/24 HOURS TOPICAL PATCH TD SCH (10:00)
[2018-10-04] MEDS: ESCITALOPRAM OXALATE 10 MG TABLET (FP) PO SCH (10:00)
[2018-10-04] MEDS: PRENATAL VITAMINS W/ FOLIC ACID TABLET (FP) PO SCH (10:00)
--- NOTE | 2018-10-04 10:29 | PN ---
[facility] Progress Note Note: Psychiatry Attending's note : Informed of the patient's decision to leave this program. Chart reviewed. Mr Park was admitted to [facility] on 10/02/18. Seeking rehabilitation for alcohol and cocaine dependence. Co-morbid with MDD as per records. On lexapro. Non-adherent for months. Patient declares that he needs to go home to take care of his elderly mother. Feels fine. " I don't need psychiatric medications. My problem is alcohol.That' s it ". No evidence of psychosis. Mood is euthymic. Cognition intact. Behavior : appropriate. Mr Park denies suicidal or homicidal intent or plan. Mental status remains unremarkable. Patient declines to reconsider his decision to leave. Indifferent to encouragement to complete treatment. " I am not staying. I don't want my mother to be alone. Give me my papers ". See staff's notes for details.
--- NOTE | 2018-10-04 15:16 | PN ---
[facility] Progress Note Note: NOTIFIED BY RN THAT PATIENT REQUESTED TO SIGN OUT AMA TO TAKE CARE OF HIS MOTHER. PATIENT SEEN BY PSYCHIATRIST DR. REGAN AND CONTINUED WITH AMA PROCESS DESPITE ENCOURAGEMENT TO COMPLETE REHAB. PATIENT CLINICALLY STABLE. IN NO ACUTE DISTRESS. PATIENTS HOME MEDICATION SHOWS ALBUTEROL INHALER. INHALER PRESCRIPTION SENT TO [facility]. Vital Signs Temperature 98.0 F 10/04/18 06:38 Pulse Rate 76 10/04/18 06:38 Respiratory Rate 17 10/04/18 06:38 Blood Pressure 120/78 10/04/18 06:38 O2 Sat by Pulse Oximetry (%)
== END 2018-10-04 10:45 | disposition left against medical advice (07) | DRG 770 ==
LOC: YASAS 17:59 → Y3W 21:09
PROVIDERS: ADMIT Psychiatry & Neurology Psychiatry; ATTEND Psychiatry & Neurology Psychiatry
PROC: HZ42ZZZ Group Counseling for Substance Abuse Treatment, Cognitive-Behavioral (ICD-10-PCS; principal; 2018-10-02)
DX: F10.20 Alcohol dependence, uncomplicated (principal); F14.20 Cocaine dependence, uncomplicated; F17.210 Nicotine dependence, cigarettes, uncomplicated; F33.9 Major depressive disorder, recurrent, unspecified; F19.24 Other psychoactive substance dependence with psychoactive substance-induced mood disorder; F19.282 Other psychoactive substance dependence with psychoactive substance-induced sleep disorder; G40.509 Epileptic seizures related to external causes, not intractable, without status epilepticus; I10 Essential (primary) hypertension; J45.909 Unspecified asthma, uncomplicated; R76.11 Nonspecific reaction to tuberculin skin test without active tuberculosis; Z91.5 Personal history of self-harm
CPT/HCPCS: 36415; 71046-TC-FY; 80053; 81003; 81015; 85027; 86593

== ENCOUNTER 2019-01-05 12:18 | Inpatient (IN) | payer OTHER ==
[2019-01-05] MEDS ORDERED: BISMUTH SUBSALICYLATE 262 MG/15 ML BTL PO PRN (14:16)
[2019-01-05] MEDS ORDERED: hydrOXYzine PAMOATE 25 MG CAPSULE (FP) PO PRN (14:16)
[2019-01-05] MEDS ORDERED: MELATONIN 5 MG TABLETS PO PRN (14:16)
[2019-01-05] MEDS ORDERED: MAG HYDROX/AL HYDROX/SIMETH 30 ML UNIT-DOSE CUP PO PRN (14:16)
[2019-01-05] MEDS ORDERED: ACETAMINOPHEN 325 MG TABLET (FP) PO PRN (14:16)
[2019-01-05] MEDS ORDERED: IBUPROFEN 400 MG TABLET (FP) PO PRN (14:16)
[2019-01-05] MEDS ORDERED: MAGNESIUM CITRATE 300 ML BOTTLE PO PRN (14:16)
[2019-01-05] MEDS ORDERED: MAGNESIUM HYDROX 2400MG/30ML ORAL SUSPENSION 30 ML CUP PO PRN (14:16)
[2019-01-05] MEDS ORDERED: chlordiazePOXIDE HCL 25 MG CAPSULE PO PRN (14:19)
[2019-01-05] MEDS ORDERED: ALBUTEROL SO4 8 GM HFA INHALER IH PRN (14:19)
--- NOTE | 2019-01-05 14:20 | HP ---
CIWA Score Nausea/Vomitin-No Nausea/No Vomiting Muscle Tremors: 1-None Visible, but [place] Anxiety: 4-Mod. Anxious/Guarded Agitation: 4-Moderately Restless Paroxysmal Sweats: No Perspiration Orientation: 0-Oriented Tacttile Disturbances: 2-Mild Itch/Numbness/Burn Auditory Disturbances: 0-None Visual Disturbances: 0-None Headache: 2-Mild CIWA-Ar Total Score: 13 - Admission Criteria OASAS Guidelines: Admission for Medically Managed Detox: Requires at least one of the followin. CIWA greater than 12 2. Seizures within the past 24 hours 3. Delirium tremens within the past 24 hours 4. Hallucinations within the past 24 hours 5. Acute intervention needed for co occurring medical disorder 6. Acute intervention needed for co occurring psychiatric disorder 7. Severe withdrawal that cannot be handled at a lower level of care (continued vomiting, continued diarrhea, abnormal vital signs) requiring intravenous medication and/or fluids 8. Admission ROS [facility] Chief Complaint: ETOH WITHDRAWAL SX AND COCAINE DEPENDENCE Allergies/Adverse Reactions: Allergies Allergy/AdvReac Type Severity Reaction Status Date / Time No Known Allergies Allergy Verified 01/05/19 13:52 History of Present Illness: PATIENT PRESENTS WITH ETOH WITHDRAWAL SX AND COCAINE DEPENDENCE. PATIENT IS KNOWN TO [facility] DUE TO MULTIPLE ADMISSIONS. PATIENT REPORTS HE STARTED DRINKING AT AGE 16 AND DRINKS 2-3 PINTS OF VODKA DAILY. LAST DRINK THIS AM. PATIENT REPORTS BINGE DRINKING, BLACKOUTS AND SEIZURES. LAST EPISODE OF SEIZURE OVER ONE YEAR AGO. PATIENT ALSO SNIFFS COCAINE, AMOUNT VARIES, LAST USE LAST NIGHT. PMH INCLUDES HTN (NO MEDS), ANXIETY/DEPRESSION AND ASTHMA. PATIENT DENIES TAKING ANY MEDICATIONS FOR CHRONIC CONDITIONS AND REFUSED PSYCH CONSULT AT THIS TIME. DENIES SI/HI AND SUICIDE ATTEMPTS. - Ebola screening Have you traveled outside of the country in the last 21 days: No Have you had contact with anyone from an Ebola affected area: No Have you been sick,other than usual withdrawal symptoms: No Do you have a fever: No - Review of Systems Constitutional: Unintentional Wgt. Loss EENT: reports: No Symptoms Reported Respiratory: reports: No Symptoms reported Cardiac: reports: No Symptoms Reported GI: reports: Poor Fluid Intake, Abdominal cramping : reports: No Symptoms Reported Musculoskeletal: reports: No Symptoms Reported Integumentary: reports: Sweating Neuro: reports: Headache, Numbness, Tingling, Tremors Endocrine: reports: Unexplained Weight Loss Hematology: reports: No Symptoms Reported Psychiatric: reports: Orientated x3, Anxious Patient History - Patient Medical History Hx Anemia: No Hx Asthma: Yes (Albuterol) Hx Chronic Obstructive Pulmonary Disease (COPD): No Hx Cancer: No Hx Cardiac Disorders: No Hx Congestive Heart Failure: No Hx Hypertension: Yes (Not on medication) Hx Hypercholesterolemia: No Hx Pacemaker: No HX Cerebrovascular Accident: No Hx Seizures: Yes (Alcohol related - Not on medication) Hx Dementia: No Hx Diabetes: No Hx Gastrointestinal Disorders: No Hx Liver Disease: No Hx Genitourinary Disorders: No Hx Sexually Transmitted Disorders: No Hx Renal Disease (ESRD): No Hx Thyroid Disease: No Hx Human Immunodeficiency Virus (HIV): No (NEGATIVE 2017) Hx Hepatitis C: No Hx Depression: Yes (Lexapro) Hx Suicide Attempt: No (Denies suicidal ideation at this time) Hx Bipolar Disorder: No Hx Schizophrenia: No - Patient Surgical History Past Surgical History: Yes Hx Neurologic Surgery: No Hx Cataract Extraction: No Hx Cardiac Surgery: No Hx Lung Surgery: No Hx Breast Surgery: No Hx Breast Biopsy: No Hx Abdominal Surgery: No Hx Appendectomy: No Hx Cholecystectomy: No Hx Genitourinary Surgery: No Hx Orthopedic Surgery: No Other Surgical History: right inguinal hernia repair Anesthesia Reaction: No - PPD History Date: 10/04/13 Results: CXR 09/2018:NEG PPD to be Administered?: No - Smoking Cessation Smoking history: Current every day smoker Have you smoked in the past 12 months: Yes Aproximately how many cigarettes per day: 20 Cigars Per Day: 0 Hx Chewing Tobacco Use: No Initiated information on smoking cessation: Yes 'Breaking Loose' booklet given: 01/05/19 - Substance & Tx. History Hx Alcohol Use: Yes Hx Substance Use: Yes Substance Use Type: Alcohol, Cocaine - Substances abused Alcohol Substance route: Oral Frequency: Daily Amount used: 2-3 PINTS Age of first use: 16 Date of last use: 01/05/19 Cocaine Substance route: Inhalation Frequency: Daily Amount used: VARIES Age of first use: 16 Date of last use: 01/04/19 Family Disease History - Family Disease History Family Disease History: Heart Disease: Mother (HTN), Other: Father (alzheimers, ) Admission Physical Exam [facility] - Physical General Appearance: Yes: Appropriately Dressed, Alcohol on Breath, Thin, Tremorous, Anxious HEENTM: Yes: EOMI, Hearing grossly Normal, Normal ENT Inspection, Normocephalic , Normal Voice, BERTA, Pharynx Normal Respiratory: Yes: Chest Non-Tender, Lungs Clear, Normal Breath Sounds, No Respiratory Distress, No Accessory Muscle Use Neck: Yes: No masses,lesions,Nodules, Supple, Trachea in good position Breast: Yes: Breast Exam Deferred Cardiology: Yes: Regular Rhythm, Regular Rate, S1, S2 Abdominal: Yes: Normal Bowel Sounds, Non Tender, Flat Genitourinary: Yes: Within Normal Limits Back: Yes: Normal Inspection Musculoskeletal: Yes: full range of Motion, Gait Steady, Pelvis Stable Extremities: Yes: Normal Inspection, Normal Range of Motion, Non-Tender, Tremors Neurological: Yes: import export coordinator II-XII NML intact, Fully Oriented, Alert, Motor Strength 5/5, Other (ANXIOUS) - Diagnostic (1) Anxiety Current Visit: Yes Status: Suspected (2) Alcohol dependence with uncomplicated withdrawal Current Visit: Yes Status: Acute (3) Cocaine dependence Current Visit: Yes Status: Chronic Qualifiers: Substance use status: uncomplicated Qualified Code(s): F14.20 - Cocaine dependence, uncomplicated (4) Nicotine dependence Current Visit: Yes Status: Chronic Qualifiers: Nicotine product type: cigarettes Substance use status: in withdrawal Qualified Code(s): F17.213 - Nicotine dependence, cigarettes, with withdrawal (5) Asthma Current Visit: Yes Status: Chronic Qualifiers: Asthma severity: mild Asthma persistence: unspecified Asthma complication type: uncomplicated Qualified Code(s): J45.909 - Unspecified asthma, uncomplicated (6) Essential hypertension Current Visit: Yes Status: Chronic (7) 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 Cleared for Admission S - Detox or Rehab [facility] Level of Care: Medically Managed Detox Regimen/Protocol: Librium Breathalyzer - Breathalyzer Breathalyzer: 0.107 Urine Drug Screen - Results Drug screen NEGATIVE: No Urine drug screen results: [facility] Admission - Rehab Decision to Admit Inpatient rehab admission?: No
[2019-01-05] MEDS: chlordiazePOXIDE HCL 25 MG CAPSULE PO SCH ×2 (17:12→22:14)
[2019-01-05 17:48] LABS: HEMATOCRIT 41.4 % (35.4-49); HEMOGLOBIN 13.9 GM/dL (11.7-16.9); MCH 27.3 pg (25.7-33.7); MCHC 33.6 g/dl (32.0-35.9); MEAN CELL VOLUME 81.3 fl (80-96); MEAN PLT VOLUME 7.4 fl (7.5-11.1); PLATELET COUNT 311 K/MM3 (134-434); RDW 13.9 % (11.9-15.9); WHITE BLOOD COUNT 7.3 K/mm3 (4.0-10.0)
[2019-01-05 18:02] LABS: ALBUMIN 3.7 g/dl (3.4-5.0); ALK PHOS 48 U/L (45-117); ANION GAP 9 MMOL/L (8-16); BILIRUBIN,TOTAL 0.4 mg/dL (0.2-1); BLOOD UREA NITROGEN 13 mg/dL (7-18); CALCIUM 9.1 mg/dL (8.5-10.1); CHLORIDE 105 mmol/L (98-107); CO2 23 mmol/L (21-32); CREATININE 1.2 mg/dL (0.55-1.3); GLUCOSE,RANDOM 77 mg/dL (74-106); POTASSIUM 3.9 mmol/L (3.5-5.1); SGOT/AST 20 U/L (15-37); SGPT/ALT 27 U/L (13-61); SODIUM 137 mmol/L (136-145); TOT PROT 7.3 g/dl (6.4-8.2)
[2019-01-05 18:41] LABS: PH,URINE 5.5 (5.0-8.0); URINE APPEARANCE CLEAR; URINE BILIRUBIN NEGATIVE (NEGATIVE); URINE COLOR YELLOW; URINE GLUCOSE (UA) NEGATIVE (NEGATIVE); URINE KETONE NEGATIVE (NEGATIVE); URINE LEUK ESTERASE NEGATIVE (NEGATIVE); URINE NITRITE NEGATIVE (NEGATIVE); URINE PROTEIN NEGATIVE (NEGATIVE); URINE UROBILINOGEN 0.2 mg/dL (0.2-1.0)
[2019-01-05] MEDS: THIAMINE HCL 100 MG TABLET (FP) PO SCH (22:14)
[2019-01-06] MEDS: chlordiazePOXIDE HCL 25 MG CAPSULE PO SCH ×2 (05:40→11:15)
[2019-01-06] MEDS ORDERED: PRENATAL VITAMINS W/ FOLIC ACID TABLET (FP) PO SCH (10:00)
--- NOTE | 2019-01-06 14:45 | PN ---
S CIWA - CIWA Score Nausea/Vomitin-No Nausea/No Vomiting Muscle Tremors: 3 Anxiety: 4-Mod. Anxious/Guarded Agitation: 2 Paroxysmal Sweats: 2 Orientation: 0-Oriented Tacttile Disturbances: 2-Mild Itch/Numbness/Burn Auditory Disturbances: 2-Mild Harshness/Frighten Visual Disturbances: 0-None Headache: 0-None Present CIWA-Ar Total Score: 15 [facility] Progress Note (SOAP) Subjective: Anxious, Tremors, Sweating, Fatigue. Objective: PATIENT A & O X 3, OBSERVED AMBULATING ON UNIT. IN NO ACUTE DISTRESS. 01/06/19 14:43 Vital Signs Temperature 95.8 F L 01/06/19 13:52 Pulse Rate 75 01/06/19 13:52 Respiratory Rate 18 01/06/19 13:52 Blood Pressure 118/79 01/06/19 13:52 O2 Sat by Pulse Oximetry (%) Laboratory Tests 01/05/19 01/05/19 01/05/19 14:30 14:30 14:30 WBC 7.3 RBC 5.10 Hgb 13.9 Hct 41.4 MCV 81.3 MCH 27.3 MCHC 33.6 RDW 13.9 Plt Count 311 MPV 7.4 L Sodium 137 Potassium 3.9 Chloride 105 Carbon Dioxide 23 Anion Gap 9 BUN 13 Creatinine 1.2 Creat Clearance w eGFR 61.55 Random Glucose 77 Calcium 9.1 Total Bilirubin 0.4 AST 20 ALT 27 Alkaline Phosphatase 48 Total Protein 7.3 Albumin 3.7 Urine Color Urine Appearance Urine pH Ur Specific [place] Urine Protein Urine Glucose (UA) Urine Ketones Urine Blood Urine Nitrite Urine Bilirubin Urine Urobilinogen Ur Leukocyte Esterase RPR Titer Nonreactive 01/05/19 15:00 WBC RBC Hgb Hct MCV MCH MCHC RDW Plt Count MPV Sodium Potassium Chloride Carbon Dioxide Anion Gap BUN Creatinine Creat Clearance w eGFR Random Glucose Calcium Total Bilirubin AST ALT Alkaline Phosphatase Total Protein Albumin Urine Color Yellow Urine Appearance Clear Urine pH 5.5 Ur Specific [place] 1.004 L Urine Protein Negative Urine Glucose (UA) Negative Urine Ketones Negative Urine Blood Negative Urine Nitrite Negative Urine Bilirubin Negative Urine Urobilinogen 0.2 Ur Leukocyte Esterase Negative RPR Titer LABS NOTED. Assessment: 01/06/19 14:44 WITHDRAWAL SYMPTOMS. Plan: CONTINUE DETOX.
--- NOTE | 2019-01-06 16:07 | PN ---
S Progress Note Note: PATIENT REPORTS THAT CURRENT WITHDRAWAL / DETOX SYMPTOMS NOTED IN PREVIOUS S C.I.W.A. / S.O.A.P. NOTE ARE MILD IN DEGREE AND THAT THEY HAVE BEEN SUBSIDING THE DAY HAS PROGRESSED. PATIENT ALSO REPORTS THAT HE HAS AN APPOINTMENT WITH HIS PSYCHIATRIST THAT HE NEEDS TO ATTEND. VS STABLE. NO SIGNIFICANT ADMISSION LABORATORY ABNORMALITIES NOTED FOR PATIENT. AT PATIENT'S REQUEST, CURRENT DETOX MEDICATION REGIMEN (LIBRIUM) MODIFIED SO THAT PATIENT MAY BE DISCHARGED TOMORROW , 01/07/2019. Saida MURPHY NP
[2019-01-06] MEDS ORDERED: chlordiazePOXIDE HCL 25 MG CAPSULE PO SCH (17:00)
[2019-01-06] MEDS ORDERED: BACITRACIN 0.9 GM PACKET TP ONE (20:48)
[2019-01-06] MEDS ORDERED: ALBUTEROL SO4 0.083% IH SOL 2.5 MG/3 ML VIAL.NEB. NEB PRN (20:48)
--- NOTE | 2019-01-06 20:52 | PN ---
[facility] Progress Note Note: Vital Signs Temperature 96.3 F L 01/06/19 17:59 Pulse Rate 80 01/06/19 17:59 Respiratory Rate 18 01/06/19 17:59 Blood Pressure 109/70 01/06/19 17:59 O2 Sat by Pulse Oximetry (%) Laboratory Last Values WBC 7.3 K/mm3 (4.0-10.0) 01/05/19 14:30 RBC 5.10 M/mm3 (4.00-5.60) 01/05/19 14:30 Hgb 13.9 GM/dL (11.7-16.9) 01/05/19 14:30 Hct 41.4 % (35.4-49) 01/05/19 14:30 MCV 81.3 fl (80-96) 01/05/19 14:30 MCH 27.3 pg (25.7-33.7) 01/05/19 14:30 MCHC 33.6 g/dl (32.0-35.9) 01/05/19 14:30 RDW 13.9 % (11.9-15.9) 01/05/19 14:30 Plt Count 311 K/MM3 (134-434) 01/05/19 14:30 MPV 7.4 fl (7.5-11.1) L 01/05/19 14:30 Sodium 137 mmol/L (136-145) 01/05/19 14:30 Potassium 3.9 mmol/L (3.5-5.1) 01/05/19 14:30 Chloride 105 mmol/L (98-107) 01/05/19 14:30 Carbon Dioxide 23 mmol/L (21-32) 01/05/19 14:30 Anion Gap 9 MMOL/L (8-16) 01/05/19 14:30 BUN 13 mg/dL (7-18) 01/05/19 14:30 Creatinine 1.2 mg/dL (0.55-1.3) 01/05/19 14:30 Creat Clearance w eGFR 61.55 (>60) 01/05/19 14:30 Random Glucose 77 mg/dL (74-106) 01/05/19 14:30 Calcium 9.1 mg/dL (8.5-10.1) 01/05/19 14:30 Total Bilirubin 0.4 mg/dL (0.2-1) 01/05/19 14:30 AST 20 U/L (15-37) 01/05/19 14:30 ALT 27 U/L (13-61) 01/05/19 14:30 Alkaline Phosphatase 48 U/L (45-117) 01/05/19 14:30 Total Protein 7.3 g/dl (6.4-8.2) 01/05/19 14:30 Albumin 3.7 g/dl (3.4-5.0) 01/05/19 14:30 Urine Color Yellow 01/05/19 15:00 Urine Appearance Clear 01/05/19 15:00 Urine pH 5.5 (5.0-8.0) 01/05/19 15:00 Ur Specific [place] 1.004 (1.010-1.035) L 01/05/19 15:00 Urine Protein Negative (NEGATIVE) 01/05/19 15:00 Urine Glucose (UA) Negative (NEGATIVE) 01/05/19 15:00 Urine Ketones Negative (NEGATIVE) 01/05/19 15:00 Urine Blood Negative (NEGATIVE) 01/05/19 15:00 Urine Nitrite Negative (NEGATIVE) 01/05/19 15:00 Urine Bilirubin Negative (NEGATIVE) 01/05/19 15:00 Urine Urobilinogen 0.2 mg/dL (0.2-1.0) 01/05/19 15:00 Ur Leukocyte Esterase Negative (NEGATIVE) 01/05/19 15:00 RPR Titer Nonreactive (NONREACTIVE) 01/05/19 14:30 Patient c/o of anal discomfort, reports prior hx of abscess with d &c. Denies hx hemorrhoids or blood in his tool. Patient also c/o of chest tightness requested albuterol d/t his asthma. Patient Aox3 no distress s1 s2 no jvd lungs clear through out skin intact no erythema no anal lesions present full ROM ambulatory TP preventive bacitracin to to skin by anal area, patient continue to touch area. Hyguine discuss an keep are clean and dry. albuterol PRN continue to monitor for worsening symptoms
[2019-01-06] MEDS: THIAMINE HCL 100 MG TABLET (FP) PO SCH (21:47)
[2019-01-06] MEDS: chlordiazePOXIDE HCL 10 MG CAPSULE PO SCH (22:27)
[2019-01-07] MEDS: chlordiazePOXIDE HCL 10 MG CAPSULE PO SCH (05:15)
[2019-01-07 06:07] VITALS: BP 101/57; PULSE 71; TEMP 97.3
[2019-01-07] MEDS ORDERED: chlordiazePOXIDE HCL 10 MG CAPSULE PO SCH (17:00)
[2019-01-07] MEDS ORDERED: chlordiazePOXIDE HCL 10 MG CAPSULE PO PRN (17:00)
--- NOTE | 2019-01-07 17:28 | DS ---
[facility] Detox Discharge Summary Admission Date: 01/05/19 Discharge Date: 01/07/19 - History Present History: Alcohol Dependence, Cocaine Dependence Additional Comments: PATIENT REPORTS THAT CURRENT WITHDRAWAL SYMPTOMS ARE MINIMAL IN DEGREE AND THAT HE FEELS WELL OVERALL AT TIME OF DISCHARGE FROM DETOX UNIT. PATIENT GOING HOME FOR TIME BEING TO ATTEND MEDICAL APPOINTMENT AND WILL RETURN TO APPLY FOR ADMISSION TO [facility] ([place], [place]) IN THE NEXT FEW DAYS. PATIENT WAS DISCHARGED FROM DETOX UNIT IN STABLE MEDICAL CONDITION. Pertinent Past History: Asthma, Essential HTN, History of Seizures (Due to Withdrawal), Depression, Anxiety, Nicotine Dependence, History of Positive PPD. - Physical Exam Results Vital Signs: Vital Signs Temperature 97.3 F L 01/07/19 06:07 Pulse Rate 71 01/07/19 06:07 Respiratory Rate 18 01/07/19 06:30 Blood Pressure 101/57 L 01/07/19 06:07 O2 Sat by Pulse Oximetry (%) Pertinent Admission Physical Exam Findings: WITHDRAWAL SYMPTOMS. Laboratory Tests 01/05/19 01/05/19 01/05/19 14:30 14:30 14:30 WBC 7.3 RBC 5.10 Hgb 13.9 Hct 41.4 MCV 81.3 MCH 27.3 MCHC 33.6 RDW 13.9 Plt Count 311 MPV 7.4 L Sodium 137 Potassium 3.9 Chloride 105 Carbon Dioxide 23 Anion Gap 9 BUN 13 Creatinine 1.2 Creat Clearance w eGFR 61.55 Random Glucose 77 Calcium 9.1 Total Bilirubin 0.4 AST 20 ALT 27 Alkaline Phosphatase 48 Total Protein 7.3 Albumin 3.7 Urine Color Urine Appearance Urine pH Ur Specific [place] Urine Protein Urine Glucose (UA) Urine Ketones Urine Blood Urine Nitrite Urine Bilirubin Urine Urobilinogen Ur Leukocyte Esterase RPR Titer Nonreactive 01/05/19 15:00 WBC RBC Hgb Hct MCV MCH MCHC RDW Plt Count MPV Sodium Potassium Chloride Carbon Dioxide Anion Gap BUN Creatinine Creat Clearance w eGFR Random Glucose Calcium Total Bilirubin AST ALT Alkaline Phosphatase Total Protein Albumin Urine Color Yellow Urine Appearance Clear Urine pH 5.5 Ur Specific [place] 1.004 L Urine Protein Negative Urine Glucose (UA) Negative Urine Ketones Negative Urine Blood Negative Urine Nitrite Negative Urine Bilirubin Negative Urine Urobilinogen 0.2 Ur Leukocyte Esterase Negative RPR Titer LABS NOTED. - Treatment Hospital Course: Detox Protocol Followed, Detoxed Safely, Responded well, Discharged Condition Good, Rehab Referral Accepted Patient has Accepted a Rehab Referral to: [facility] ([place], [place]) - PATIENT WILL APPLY IN NEXT FEW DAYS. - Medication Discharge Medications: Ambulatory Orders Albuterol Sulfate Inhaler - [Ventolin HFA Inhaler -] 2 inh PO Q4H PRN #1 inhaler 10/04/18 - Diagnosis (1) Alcohol dependence with uncomplicated withdrawal Status: Acute (2) Asthma Status: Chronic (3) Cocaine dependence Status: Chronic Qualifiers: Substance use status: uncomplicated Qualified Code(s): F14.20 - Cocaine dependence, uncomplicated (4) Essential hypertension Status: Chronic (5) Nicotine dependence Status: Chronic Qualifiers: Nicotine product type: cigarettes Substance use status: uncomplicated Qualified Code(s): F17.210 - Nicotine dependence, cigarettes, uncomplicated (6) PPD positive Status: Chronic (7) Anxiety Status: Suspected - AMA Did Patient Leave Against Medical Advice: No
[2019-01-08] MEDS ORDERED: chlordiazePOXIDE HCL 10 MG CAPSULE PO SCH (17:00)
== END 2019-01-07 08:45 | disposition home or self-care (01) | DRG 774 ==
LOC: YASAS 12:18 → Y3N 14:39
PROVIDERS: ADMIT Surgery; ATTEND Surgery
PROC: HZ2ZZZZ Detoxification Services for Substance Abuse Treatment (ICD-10-PCS; principal; 2019-01-05)
DX: F10.230 Alcohol dependence with withdrawal, uncomplicated (principal); F14.20 Cocaine dependence, uncomplicated; F17.210 Nicotine dependence, cigarettes, uncomplicated; F41.9 Anxiety disorder, unspecified; I10 Essential (primary) hypertension; J45.909 Unspecified asthma, uncomplicated; R76.11 Nonspecific reaction to tuberculin skin test without active tuberculosis; Z86.69 Personal history of other diseases of the nervous system and sense organs
CPT/HCPCS: 36415; 80053; 81003; 85027; 86593

== ENCOUNTER 2021-12-05 14:03 | Inpatient (IN) | payer OTHER ==
[2021-12-05] MEDS ORDERED: MAG HYDROX/AL HYDROX/SIMETH 30 ML UNIT-DOSE CUP PO PRN (15:09)
[2021-12-05] MEDS ORDERED: BISMUTH SUBSALICYLATE 524 MG/30 ML PO PRN (15:09)
[2021-12-05] MEDS ORDERED: LOPERAMIDE HCL 2 MG CAPSULE PO PRN (15:09)
[2021-12-05] MEDS ORDERED: MENTHOL/PHENOL 1 EACH UD MM PRN (15:09)
[2021-12-05] MEDS ORDERED: IBUPROFEN 400 MG TABLET (FP) PO PRN (15:09)
[2021-12-05] MEDS ORDERED: METHOCARBAMOL 500 MG TABLET PO PRN (15:09)
[2021-12-05] MEDS ORDERED: NICOTINE 10 MG CARTRIDGE (INHALER) IH PRN (15:09)
[2021-12-05] MEDS ORDERED: chlordiazePOXIDE HCL 25 MG CAPSULE PO PRN (15:09)
[2021-12-05] MEDS ORDERED: ACETAMINOPHEN 325 MG TABLET (FP) PO PRN ×2 (15:09)
[2021-12-05] MEDS ORDERED: MAGNESIUM HYDROX 2400MG/30ML ORAL SUSPENSION 30 ML CUP PO PRN (15:09)
[2021-12-05] MEDS ORDERED: ONDANSETRON *ODT* 4 MG TABLET SL PRN (15:09)
[2021-12-05] MEDS ORDERED: MAGNESIUM CITRATE 300 ML BOTTLE PO PRN (15:09)
[2021-12-05 15:59] VITALS: BMI 22.1
[2021-12-05] MEDS ORDERED: ALBUTEROL SO4 HFA INHALER IH PRN (16:06)
[2021-12-05] MEDS: NICOTINE 14 MG/24 HOURS TOPICAL PATCH TD SCH (18:53)
[2021-12-05] MEDS: chlordiazePOXIDE HCL 25 MG CAPSULE PO SCH ×2 (18:53→22:08)
[2021-12-05] MEDS: PRENATAL VITAMINS W/ FOLIC ACID TABLET (FP) PO SCH (18:53)
[2021-12-05] MEDS: hydrOXYzine PAMOATE 25 MG CAPSULE (FP) PO SCH ×2 (18:53→22:08)
[2021-12-05] MEDS: MELATONIN 5 MG TABLETS PO SCH (22:08)
[2021-12-05] MEDS: THIAMINE HCL 100 MG TABLET (FP) PO SCH (22:08)
[2021-12-06] MEDS: chlordiazePOXIDE HCL 25 MG CAPSULE PO SCH ×4 (05:12→22:26)
[2021-12-06] MEDS: hydrOXYzine PAMOATE 25 MG CAPSULE (FP) PO SCH ×5 (05:12→22:26)
[2021-12-06] MEDS: NICOTINE 14 MG/24 HOURS TOPICAL PATCH TD SCH (10:16)
[2021-12-06] MEDS: PRENATAL VITAMINS W/ FOLIC ACID TABLET (FP) PO SCH (10:16)
[2021-12-06] MEDS ORDERED: FLU VACC QS2021-22(6MOS UP)/PF 60 MCG/0.5 ML SYRINGE IM ONE (13:00)
[2021-12-06 14:14] LABS: BLOOD UREA NITROGEN 19.3 mg/dL (7-18); CALCIUM 9.2 mg/dL (8.5-10.1); HEMATOCRIT 41.1 % (35.4-49); HEMOGLOBIN 13.7 GM/dL (11.7-16.9); MCH 28.4 pg (25.7-33.7); MCHC 33.4 g/dl (32.0-35.9); MEAN CELL VOLUME 85.1 fl (80-96); MEAN PLT VOLUME 7.2 fl (7.5-11.1); PLATELET COUNT 301 10^3/uL (134-434); RBC 4.83 M/mm3 (4.00-5.60); RDW 16.6 % (11.9-15.9); WHITE BLOOD COUNT 5.4 K/mm3 (4.0-10.0)
[2021-12-06 14:15] LABS: ALBUMIN 3.3 g/dl (3.4-5.0)
[2021-12-06 14:18] LABS: CREATININE 1.1 mg/dL (0.55-1.3)
[2021-12-06 14:19] LABS: BILIRUBIN,TOTAL 0.3 mg/dL (0.2-1); TOT PROT 6.1 g/dl (6.4-8.2)
[2021-12-06] MEDS: MELATONIN 5 MG TABLETS PO SCH (22:26)
[2021-12-06] MEDS: THIAMINE HCL 100 MG TABLET (FP) PO SCH (22:26)
[2021-12-07] MEDS: hydrOXYzine PAMOATE 25 MG CAPSULE (FP) PO SCH ×3 (06:20→14:36)
[2021-12-07] MEDS: chlordiazePOXIDE HCL 25 MG CAPSULE PO SCH ×2 (06:20→10:24)
[2021-12-07] MEDS ORDERED: ESCITALOPRAM OXALATE 10 MG TABLET PO SCH (10:00)
[2021-12-07] MEDS: PRENATAL VITAMINS W/ FOLIC ACID TABLET (FP) PO SCH (10:25)
[2021-12-07] MEDS: NICOTINE 14 MG/24 HOURS TOPICAL PATCH TD SCH (10:26)
[2021-12-07 14:08] LABS: SARS-CoV-2 NAA Not Detected (Not Detected)
[2021-12-07 18:05] VITALS: BP 108/67; PULSE 85; TEMP 97.1
[2021-12-08] MEDS ORDERED: chlordiazePOXIDE HCL 10 MG CAPSULE PO PRN
[2021-12-08] MEDS ORDERED: chlordiazePOXIDE HCL 10 MG CAPSULE PO SCH (05:00)
[2021-12-09] MEDS ORDERED: chlordiazePOXIDE HCL 10 MG CAPSULE PO SCH (05:00)
[2021-12-10] MEDS ORDERED: chlordiazePOXIDE HCL 10 MG CAPSULE PO ONE (05:00)
== END 2021-12-07 18:10 | disposition home or self-care (01) | DRG 897 ==
LOC: YASAS 14:03 → Y3N 16:48
PROVIDERS: ADMIT Allergy & Immunology; ATTEND Allergy & Immunology
PROC: HZ2ZZZZ Detoxification Services for Substance Abuse Treatment (ICD-10-PCS; principal; 2021-12-05)
DX: F10.230 Alcohol dependence with withdrawal, uncomplicated (principal); F17.210 Nicotine dependence, cigarettes, uncomplicated; F19.24 Other psychoactive substance dependence with psychoactive substance-induced mood disorder; F41.9 Anxiety disorder, unspecified; F32.A Depression, unspecified; J45.909 Unspecified asthma, uncomplicated; Z86.11 Personal history of tuberculosis; Z86.69 Personal history of other diseases of the nervous system and sense organs; Z98.890 Other specified postprocedural states; Z59.02 Unsheltered homelessness
CPT/HCPCS: 36415; 71046-TC-FY; 80053; 85027; 86593; 86780; 93005; 93010; C9803; U0003; U0005

== ENCOUNTER 2022-05-21 11:44 | Inpatient (IN) | payer OTHER ==
[2022-05-21 12:35] VITALS: BMI 21.6
[2022-05-21] MEDS ORDERED: ONDANSETRON *ODT* 4 MG TABLET SL PRN (12:52)
[2022-05-21] MEDS ORDERED: LOPERAMIDE HCL 2 MG CAPSULE PO PRN (12:52)
[2022-05-21] MEDS ORDERED: IBUPROFEN 400 MG TABLET (FP) PO PRN (12:52)
[2022-05-21] MEDS ORDERED: NICOTINE 10 MG CARTRIDGE (INHALER) IH PRN (12:52)
[2022-05-21] MEDS ORDERED: ACETAMINOPHEN 325 MG TABLET (FP) PO PRN ×2 (12:52)
[2022-05-21] MEDS ORDERED: METHOCARBAMOL 500 MG TABLET PO PRN (12:52)
[2022-05-21] MEDS ORDERED: MAG HYDROX/AL HYDROX/SIMETH 30 ML UNIT-DOSE CUP PO PRN (12:52)
[2022-05-21] MEDS ORDERED: BISMUTH SUBSALICYLATE 524 MG/30 ML PO PRN (12:52)
[2022-05-21] MEDS ORDERED: MAGNESIUM HYDROX 2400MG/30ML ORAL SUSPENSION 30 ML CUP PO PRN (12:52)
[2022-05-21] MEDS ORDERED: DICYCLOMINE HCL 10 MG CAPSULE PO PRN (12:52)
[2022-05-21] MEDS ORDERED: chlordiazePOXIDE HCL 25 MG CAPSULE PO PRN (12:52)
[2022-05-21] MEDS ORDERED: BENZOCAINE/MENTHOL (CHLORASEPTIC ) LOZENGE MM PRN (12:52)
[2022-05-21] MEDS ORDERED: IBUPROFEN 600 MG TABLET (FP) PO PRN (12:52)
[2022-05-21] MEDS ORDERED: MAGNESIUM CITRATE 300 ML BOTTLE PO PRN (12:52)
[2022-05-21] MEDS ORDERED: ALBUTEROL SO4 HFA INHALER IH PRN (12:54)
[2022-05-21] MEDS: hydrOXYzine PAMOATE 25 MG CAPSULE (FP) PO SCH ×3 (13:47→22:39)
[2022-05-21] MEDS: PRENATAL VITAMINS W/ FOLIC ACID TABLET (FP) PO SCH (13:47)
[2022-05-21] MEDS: chlordiazePOXIDE HCL 25 MG CAPSULE PO SCH ×2 (18:02→22:39)
[2022-05-21] MEDS: MELATONIN 5 MG TABLETS PO SCH (22:39)
[2022-05-21] MEDS: THIAMINE HCL 100 MG TABLET (FP) PO SCH (22:39)
[2022-05-22] MEDS: chlordiazePOXIDE HCL 25 MG CAPSULE PO SCH ×4 (06:05→22:44)
[2022-05-22] MEDS: hydrOXYzine PAMOATE 25 MG CAPSULE (FP) PO SCH ×5 (06:06→22:44)
[2022-05-22] MEDS ORDERED: ESCITALOPRAM OXALATE 10 MG TABLET PO SCH (10:00)
[2022-05-22] MEDS: PRENATAL VITAMINS W/ FOLIC ACID TABLET (FP) PO SCH (10:25)
[2022-05-22 12:40] LABS: HEMATOCRIT 42.6 % (35.4-49); HEMOGLOBIN 14.3 GM/dL (11.7-16.9); MCH 27.2 pg (25.7-33.7); MCHC 33.4 g/dl (32.0-35.9); MEAN CELL VOLUME 81.4 fl (80-96); MEAN PLT VOLUME 7.8 fl (7.5-11.1); PLATELET COUNT 207 10^3/uL (134-434); RBC 5.24 M/mm3 (4.00-5.60); RDW 14.5 % (11.9-15.9); WHITE BLOOD COUNT 5.7 K/mm3 (4.0-10.0)
[2022-05-22 12:47] LABS: ALBUMIN 3.4 g/dl (3.4-5.0); CALCIUM 9.1 mg/dL (8.5-10.1)
[2022-05-22 12:48] LABS: BLOOD UREA NITROGEN 14.6 mg/dL (7-18)
[2022-05-22 12:52] LABS: BILIRUBIN,TOTAL 0.8 mg/dL (0.2-1); TOT PROT 6.7 g/dl (6.4-8.2)
[2022-05-22] MEDS: THIAMINE HCL 100 MG TABLET (FP) PO SCH (22:44)
[2022-05-22] MEDS: MELATONIN 5 MG TABLETS PO SCH (22:44)
[2022-05-22 22:53] VITALS: RESP 18
[2022-05-23] MEDS ORDERED: chlordiazePOXIDE HCL 25 MG CAPSULE PO SCH (05:00)
[2022-05-23] MEDS: hydrOXYzine PAMOATE 25 MG CAPSULE (FP) PO SCH (07:15)
[2022-05-23 09:04] VITALS: BP 114/81; PULSE 88; TEMP 96.9
[2022-05-24] MEDS ORDERED: chlordiazePOXIDE HCL 10 MG CAPSULE PO PRN
[2022-05-24] MEDS ORDERED: chlordiazePOXIDE HCL 10 MG CAPSULE PO SCH (05:00)
[2022-05-25] MEDS ORDERED: chlordiazePOXIDE HCL 10 MG CAPSULE PO SCH (05:00)
[2022-05-26] MEDS ORDERED: chlordiazePOXIDE HCL 10 MG CAPSULE PO ONE (05:00)
== END 2022-05-23 09:28 | disposition left against medical advice (07) | DRG 894 ==
LOC: YASAS 11:44 → Y3N 13:16
PROVIDERS: ADMIT Allergy & Immunology; ATTEND Surgery
PROC: HZ2ZZZZ Detoxification Services for Substance Abuse Treatment (ICD-10-PCS; principal; 2022-05-21)
DX: F10.230 Alcohol dependence with withdrawal, uncomplicated (principal); F14.20 Cocaine dependence, uncomplicated; F19.282 Other psychoactive substance dependence with psychoactive substance-induced sleep disorder; F33.9 Major depressive disorder, recurrent, unspecified; F17.210 Nicotine dependence, cigarettes, uncomplicated; F19.24 Other psychoactive substance dependence with psychoactive substance-induced mood disorder; R76.11 Nonspecific reaction to tuberculin skin test without active tuberculosis; Z59.02 Unsheltered homelessness
CPT/HCPCS: 36415; 80053; 85027; 86593; 86780; C9803-CS; U0003; U0005

== ENCOUNTER 2022-08-04 14:08 | Inpatient (IN) | payer OTHER ==
[2022-08-04 14:54] VITALS: BMI 21.7
[2022-08-04] MEDS ORDERED: IBUPROFEN 600 MG TABLET (FP) PO PRN (15:24)
[2022-08-04] MEDS ORDERED: LORazepam 1 MG TABLET PO PRN (15:24)
[2022-08-04] MEDS ORDERED: hydrOXYzine PAMOATE 25 MG CAPSULE (FP) PO PRN (15:24)
[2022-08-04] MEDS ORDERED: BENZOCAINE/MENTHOL (CHLORASEPTIC ) LOZENGE MM PRN (15:24)
[2022-08-04] MEDS ORDERED: ONDANSETRON *ODT* 4 MG TABLET SL PRN (15:24)
[2022-08-04] MEDS ORDERED: ACETAMINOPHEN 325 MG TABLET (FP) PO PRN ×2 (15:24)
[2022-08-04] MEDS ORDERED: NICOTINE 10 MG CARTRIDGE (INHALER) IH PRN (15:24)
[2022-08-04] MEDS ORDERED: MAGNESIUM CITRATE 300 ML BOTTLE PO PRN (15:24)
[2022-08-04] MEDS ORDERED: LOPERAMIDE HCL 2 MG CAPSULE PO PRN (15:24)
[2022-08-04] MEDS ORDERED: BISMUTH SUBSALICYLATE 524 MG/30 ML PO PRN (15:24)
[2022-08-04] MEDS ORDERED: MAG HYDROX/AL HYDROX/SIMETH 30 ML UNIT-DOSE CUP PO PRN (15:24)
[2022-08-04] MEDS ORDERED: IBUPROFEN 400 MG TABLET (FP) PO PRN (15:24)
[2022-08-04] MEDS ORDERED: DICYCLOMINE HCL 10 MG CAPSULE PO PRN (15:24)
[2022-08-04] MEDS ORDERED: METHOCARBAMOL 500 MG TABLET PO PRN (15:24)
[2022-08-04] MEDS ORDERED: MAGNESIUM HYDROX 2400MG/30ML ORAL SUSPENSION 30 ML CUP PO PRN (15:24)
[2022-08-04] MEDS: LORazepam 2 MG TABLET PO SCH ×2 (16:42→22:32)
[2022-08-04] MEDS ORDERED: THIAMINE HCL 100 MG TABLET (FP) PO SCH (22:00)
[2022-08-04] MEDS ORDERED: MELATONIN 5 MG TABLETS PO SCH (22:00)
[2022-08-05] MEDS: LORazepam 2 MG TABLET PO SCH ×2 (05:42→10:47)
[2022-08-05 06:34] VITALS: BP 117/72; PULSE 75; RESP 16; TEMP 97.1
[2022-08-05] MEDS ORDERED: ALBUTEROL SO4 HFA INHALER IH PRN (09:15)
[2022-08-05] MEDS ORDERED: PRENATAL VITAMINS W/ FOLIC ACID TABLET (FP) PO SCH (10:00)
[2022-08-05] MEDS ORDERED: FLU VACC QS2022-23(6MOS UP)/PF 60 MCG/0.5 ML SYRINGE IM ONE (16:00)
[2022-08-06] MEDS ORDERED: LORazepam 1 MG TABLET PO SCH (05:00)
[2022-08-07] MEDS ORDERED: LORazepam 0.5 MG TABLET PO PRN
[2022-08-07] MEDS ORDERED: LORazepam 0.5 MG TABLET PO SCH (05:00)
[2022-08-08] MEDS ORDERED: LORazepam 0.5 MG TABLET PO ONE (05:00)
== END 2022-08-05 10:45 | disposition left against medical advice (07) | DRG 894 ==
LOC: YASAS 14:08 → Y6N 15:34
PROVIDERS: ADMIT Allergy & Immunology; ATTEND Surgery
PROC: HZ2ZZZZ Detoxification Services for Substance Abuse Treatment (ICD-10-PCS; principal; 2022-08-04)
DX: F10.230 Alcohol dependence with withdrawal, uncomplicated (principal); F14.20 Cocaine dependence, uncomplicated; F17.210 Nicotine dependence, cigarettes, uncomplicated; F32.A Depression, unspecified; J45.909 Unspecified asthma, uncomplicated; R76.11 Nonspecific reaction to tuberculin skin test without active tuberculosis
CPT/HCPCS: C9803-CS; U0003; U0005

== ENCOUNTER 2022-10-17 12:36 | Inpatient (IN) | payer OTHER ==
[2022-10-17 13:27] VITALS: BMI 23.6
[2022-10-17] MEDS ORDERED: ONDANSETRON *ODT* 4 MG TABLET SL PRN (14:20)
[2022-10-17] MEDS ORDERED: ACETAMINOPHEN 325 MG TABLET (FP) PO PRN ×2 (14:20)
[2022-10-17] MEDS ORDERED: NALOXONE HCL (KLOXXADO) 8 MG SPRAY NS PRN (14:20)
[2022-10-17] MEDS ORDERED: DICYCLOMINE HCL 10 MG CAPSULE PO PRN (14:20)
[2022-10-17] MEDS ORDERED: BENZOCAINE/MENTHOL (CHLORASEPTIC ) LOZENGE MM PRN (14:20)
[2022-10-17] MEDS ORDERED: METHOCARBAMOL 500 MG TABLET PO PRN (14:20)
[2022-10-17] MEDS ORDERED: BISMUTH SUBSALICYLATE 524 MG/30 ML PO PRN (14:20)
[2022-10-17] MEDS ORDERED: LOPERAMIDE HCL 2 MG CAPSULE PO PRN (14:20)
[2022-10-17] MEDS ORDERED: NICOTINE 10 MG CARTRIDGE (INHALER) IH PRN (14:20)
[2022-10-17] MEDS ORDERED: MAG HYDROX/AL HYDROX/SIMETH 30 ML UNIT-DOSE CUP PO PRN (14:20)
[2022-10-17] MEDS ORDERED: POLYETHYLENE GLYCOL (HEALTHYLAX) 3350 17 GM PACKET PO PRN (14:20)
[2022-10-17] MEDS ORDERED: MAGNESIUM HYDROX 2400MG/30ML ORAL SUSPENSION 30 ML CUP PO PRN (14:20)
[2022-10-17] MEDS ORDERED: IBUPROFEN 600 MG TABLET (FP) PO PRN (14:20)
[2022-10-17] MEDS ORDERED: ALBUTEROL SO4 HFA INHALER IH PRN (14:27)
[2022-10-17] MEDS ORDERED: diazePAM 5 MG TABLET PO PRN (14:37)
[2022-10-17] MEDS ORDERED: ALBUTEROL SO4 2.5/IPRATROPIUM 0.5 INH SOL 3 ML VIAL.NEB. NEB ONE (15:15)
[2022-10-17] MEDS: PRENATAL VITAMINS W/ FOLIC ACID TABLET (FP) PO SCH (16:06)
[2022-10-17] MEDS: diazePAM 5 MG TABLET PO SCH ×2 (17:30→22:28)
[2022-10-17] MEDS: THIAMINE HCL 100 MG TABLET (FP) PO SCH (22:27)
[2022-10-17] MEDS: MELATONIN 5 MG TABLETS PO SCH (22:27)
[2022-10-17] MEDS: IBUPROFEN 400 MG TABLET (FP) PO PRN (22:28)
[2022-10-18] MEDS: diazePAM 5 MG TABLET PO SCH ×4 (05:56→22:38)
[2022-10-18] MEDS: NICOTINE 21 MG/24 HOURS TOPICAL PATCH TD SCH (10:27)
[2022-10-18] MEDS: PRENATAL VITAMINS W/ FOLIC ACID TABLET (FP) PO SCH (10:27)
[2022-10-18 12:05] LABS: HEMATOCRIT 39.4 % (35.4-49); HEMOGLOBIN 12.8 GM/dL (11.7-16.9); MCH 27.2 pg (25.7-33.7); MCHC 32.5 g/dl (32.0-35.9); MEAN CELL VOLUME 83.7 fl (80-96); MEAN PLT VOLUME 7.5 fl (7.5-11.1); PLATELET COUNT 288 10^3/uL (134-434); RBC 4.71 M/mm3 (4.00-5.60); RDW 14.4 % (11.9-15.9); WHITE BLOOD COUNT 6.1 K/mm3 (4.0-10.0)
[2022-10-18 12:17] LABS: ALBUMIN 3.2 g/dl (3.4-5.0); CALCIUM 9.1 mg/dL (8.5-10.1)
[2022-10-18 12:18] LABS: BLOOD UREA NITROGEN 17.8 mg/dL (7-18)
[2022-10-18 12:20] LABS: CREATININE 1.2 mg/dL (0.55-1.3)
[2022-10-18 12:21] LABS: BILIRUBIN,TOTAL 0.3 mg/dL (0.2-1)
[2022-10-18 12:24] LABS: TOT PROT 5.8 g/dl (6.4-8.2)
[2022-10-18] MEDS: THIAMINE HCL 100 MG TABLET (FP) PO SCH (22:38)
[2022-10-18] MEDS: MELATONIN 5 MG TABLETS PO SCH (22:38)
[2022-10-18] MEDS: IBUPROFEN 400 MG TABLET (FP) PO PRN (22:39)
[2022-10-19] MEDS: diazePAM 5 MG TABLET PO SCH ×3 (05:32→21:38)
[2022-10-19] MEDS: PRENATAL VITAMINS W/ FOLIC ACID TABLET (FP) PO SCH (10:18)
[2022-10-19] MEDS: NICOTINE 21 MG/24 HOURS TOPICAL PATCH TD SCH (10:18)
[2022-10-19] MEDS: THIAMINE HCL 100 MG TABLET (FP) PO SCH (21:38)
[2022-10-19] MEDS: MELATONIN 5 MG TABLETS PO SCH (21:38)
[2022-10-19] MEDS: IBUPROFEN 400 MG TABLET (FP) PO PRN (21:41)
[2022-10-20] MEDS ORDERED: diazePAM 5 MG TABLET PO SCH (06:00)
[2022-10-20 09:31] VITALS: BP 93/62; PULSE 74; RESP 16; TEMP 97.5
[2022-10-20] MEDS: PRENATAL VITAMINS W/ FOLIC ACID TABLET (FP) PO SCH (10:00)
[2022-10-20] MEDS: NICOTINE 21 MG/24 HOURS TOPICAL PATCH TD SCH (10:00)
[2022-10-21] MEDS ORDERED: diazePAM 5 MG TABLET PO ONE (06:00)
== END 2022-10-20 10:06 | disposition home or self-care (01) | DRG 897 ==
LOC: YASAS 12:36 → Y3N 14:59
PROVIDERS: ADMIT Allergy & Immunology; ATTEND Surgery
PROC: HZ2ZZZZ Detoxification Services for Substance Abuse Treatment (ICD-10-PCS; principal; 2022-10-17)
DX: F10.230 Alcohol dependence with withdrawal, uncomplicated (principal); F14.20 Cocaine dependence, uncomplicated; F17.210 Nicotine dependence, cigarettes, uncomplicated; F32.A Depression, unspecified; J45.909 Unspecified asthma, uncomplicated
CPT/HCPCS: 36415; 80053; 85027; 86593; 86780; 94640; C9803-CS; U0003; U0005

== ENCOUNTER 2023-05-03 12:58 | Inpatient (IN) | payer OTHER ==
[2023-05-03 14:10] VITALS: BMI 22.8
[2023-05-03] MEDS ORDERED: ALBUTEROL SO4 HFA INHALER IH PRN (14:23)
[2023-05-03] MEDS ORDERED: MAG HYDROX/AL HYDROX/SIMETH 30 ML UNIT-DOSE CUP PO PRN (14:36)
[2023-05-03] MEDS ORDERED: P-EPHED 60MG/TRIPROLIDI 2.5MG TABLET PO PRN (14:36)
[2023-05-03] MEDS ORDERED: MAGNESIUM HYDROX 2400MG/30ML ORAL SUSPENSION 30 ML CUP PO PRN (14:36)
[2023-05-03] MEDS ORDERED: BISMUTH SUBSALICYLATE 262 MG/15 ML BTL PO PRN (14:36)
[2023-05-03] MEDS ORDERED: ACETAMINOPHEN 325 MG TABLET (FP) PO PRN (14:36)
[2023-05-03] MEDS ORDERED: POLYETHYLENE GLYCOL (HEALTHYLAX) 3350 17 GM PACKET PO PRN (14:36)
[2023-05-03] MEDS ORDERED: NICOTINE POLACRILEX 2 MG GUM BUC PRN (14:36)
[2023-05-03] MEDS ORDERED: BENZONATATE 200 MG CAPSULE PO PRN (14:36)
[2023-05-03] MEDS ORDERED: BENZOCAINE/MENTHOL (CHLORASEPTIC ) LOZENGE MM PRN (14:36)
[2023-05-03] MEDS ORDERED: guaiFENesin 600 MG TABLET.ER (FP) PO PRN (14:36)
[2023-05-03] MEDS ORDERED: IBUPROFEN 400 MG TABLET (FP) PO PRN (14:36)
[2023-05-03] MEDS ORDERED: ONDANSETRON *ODT* 4 MG TABLET SL PRN (14:36)
[2023-05-03] MEDS ORDERED: LOPERAMIDE HCL 2 MG CAPSULE PO PRN (14:36)
[2023-05-03] MEDS ORDERED: diazePAM 5 MG TABLET PO PRN (14:38)
[2023-05-03] MEDS: diazePAM 5 MG TABLET PO SCH ×2 (17:30→22:12)
[2023-05-03] MEDS: MELATONIN 5 MG TABLETS PO SCH (22:12)
[2023-05-03] MEDS: THIAMINE HCL 100 MG TABLET (FP) PO SCH (22:12)
[2023-05-04] MEDS: diazePAM 5 MG TABLET PO SCH ×4 (05:12→22:17)
[2023-05-04 08:35] LABS: HEMATOCRIT 40.7 % (35.4-49); HEMOGLOBIN 13.2 GM/dL (11.7-16.9); MCH 27.6 pg (25.7-33.7); MCHC 32.3 g/dl (32.0-35.9); MEAN CELL VOLUME 85.4 fl (80-96); MEAN PLT VOLUME 7.7 fl (7.5-11.1); PLATELET COUNT 240 10^3/uL (134-434); RBC 4.76 M/mm3 (4.00-5.60); RDW 16.6 % (11.9-15.9); WHITE BLOOD COUNT 7.5 K/mm3 (4.0-10.0)
[2023-05-04 09:04] LABS: POTASSIUM 4.5 mmol/L (3.5-5.1)
[2023-05-04 09:11] LABS: ALBUMIN 3.3 g/dl (3.4-5.0); BLOOD UREA NITROGEN 9.7 mg/dL (7-18)
[2023-05-04 09:14] LABS: CREATININE 1.1 mg/dL (0.55-1.3)
[2023-05-04 09:16] LABS: BILIRUBIN,TOTAL 1.2 mg/dL (0.2-1); TOT PROT 6.4 g/dl (6.4-8.2)
[2023-05-04] MEDS: ESCITALOPRAM OXALATE 10 MG TABLET PO SCH (10:22)
[2023-05-04] MEDS: PRENATAL VITAMINS W/ FOLIC ACID TABLET (FP) PO SCH (10:22)
[2023-05-04] MEDS: THIAMINE HCL 100 MG TABLET (FP) PO SCH (22:16)
[2023-05-04] MEDS: MELATONIN 5 MG TABLETS PO SCH (22:17)
[2023-05-05] MEDS: diazePAM 5 MG TABLET PO SCH ×3 (05:27→22:13)
[2023-05-05] MEDS: IBUPROFEN 600 MG TABLET (FP) PO PRN ×2 (08:26→22:15)
[2023-05-05] MEDS: ESCITALOPRAM OXALATE 10 MG TABLET PO SCH (10:28)
[2023-05-05] MEDS: PRENATAL VITAMINS W/ FOLIC ACID TABLET (FP) PO SCH (10:28)
[2023-05-05] MEDS ORDERED: predniSONE 10 MG TABLET (UD) PO ONE (14:05)
[2023-05-05] MEDS: METHYL SALICYLATE/MENTHOL OINT 30 GM TUBE TP SCH (22:13)
[2023-05-05] MEDS: MELATONIN 5 MG TABLETS PO SCH (22:13)
[2023-05-05] MEDS: THIAMINE HCL 100 MG TABLET (FP) PO SCH (22:13)
[2023-05-06] MEDS: diazePAM 5 MG TABLET PO SCH ×2 (05:24→17:00)
[2023-05-06] MEDS ORDERED: predniSONE 10 MG TABLET (UD) PO ONE (10:00)
[2023-05-06] MEDS: PRENATAL VITAMINS W/ FOLIC ACID TABLET (FP) PO SCH (10:09)
[2023-05-06] MEDS: ESCITALOPRAM OXALATE 10 MG TABLET PO SCH (10:10)
[2023-05-06] MEDS: METHYL SALICYLATE/MENTHOL OINT 30 GM TUBE TP SCH ×2 (10:10→22:18)
[2023-05-06] MEDS: MELATONIN 5 MG TABLETS PO SCH (22:18)
[2023-05-06] MEDS: THIAMINE HCL 100 MG TABLET (FP) PO SCH (22:19)
[2023-05-07] MEDS ORDERED: diazePAM 5 MG TABLET PO ONE (06:00)
[2023-05-07 09:24] VITALS: BP 112/67; PULSE 64; RESP 17; TEMP 96.9
[2023-05-07] MEDS: ESCITALOPRAM OXALATE 10 MG TABLET PO SCH (09:32)
[2023-05-07] MEDS: PRENATAL VITAMINS W/ FOLIC ACID TABLET (FP) PO SCH (09:33)
[2023-05-07] MEDS: METHYL SALICYLATE/MENTHOL OINT 30 GM TUBE TP SCH (09:33)
[2023-05-07] MEDS ORDERED: predniSONE 10 MG TABLET (UD) PO ONE (10:00)
== END 2023-05-07 10:05 | disposition home or self-care (01) | DRG 897 ==
LOC: YASAS 12:58 → Y6N 16:15
PROVIDERS: ADMIT Allergy & Immunology; ATTEND Surgery
PROC: HZ2ZZZZ Detoxification Services for Substance Abuse Treatment (ICD-10-PCS; principal; 2023-05-03)
DX: F10.230 Alcohol dependence with withdrawal, uncomplicated (principal); F14.20 Cocaine dependence, uncomplicated; F17.210 Nicotine dependence, cigarettes, uncomplicated; F32.A Depression, unspecified; J45.909 Unspecified asthma, uncomplicated; M10.9 Gout, unspecified; R76.11 Nonspecific reaction to tuberculin skin test without active tuberculosis; Z86.19 Personal history of other infectious and parasitic diseases; Z86.59 Personal history of other mental and behavioral disorders; Z59.00 Homelessness unspecified
CPT/HCPCS: 36415; 80053; 85027; 86593; 86780; 87635